=== PATIENT | male | born 1945 | race Caucasian/White ===

== ENCOUNTER → 2017-11-16 08:38 | Outpatient (CLI) | payer MEDICARE, SELFPAY ==
--- NOTE | 2017-11-16 08:39 | DI.RAD.S_ITS ---
PROCEDURE: XR FOOT LT MIN 3V INDICATIONS: Pain in L foot TECHNIQUE: 3 views of the foot were acquired. COMPARISON: None. FINDINGS: Bones: No fractures or dislocations. No suspicious bony lesions. Bone mineralization is within normal limits. There are mild/moderate degenerative changes present involving the midfoot and forefoot joints. There appears to be a deformity involving the distal tibia, which may be related to previous injury. Soft tissues: No tibiotalar joint effusion. Achilles tendon appears normal in thickness. IMPRESSION: Degenerative changes of the left foot without an acute fracture evident. Dictated by: Rajesh Hernandez M.D. on 11/16/2017 at 8:11 Approved by: Rajesh Hernandez M.D. on 11/16/2017 at 8:13
== END ==
PROVIDERS: Family Provider Physician Assistant; PCP Physician Assistant; Visit Provider Physician Assistant
DX: M19.072 Primary osteoarthritis, left ankle and foot (principal); M79.672 Pain in left foot
CPT/HCPCS: 73630

== ENCOUNTER → 2017-12-04 09:49 | Outpatient (CLI) | payer MEDICARE, SELFPAY ==
--- NOTE | 2017-12-04 09:52 | DI.RAD.S_ITS ---
PROCEDURE: XR ANKLE LT MIN 3V INDICATIONS: worsening foot pain TECHNIQUE: 3 views of the ankle were acquired. COMPARISON: None. FINDINGS: Bones: No fractures or dislocations. Ankle mortise is normally aligned. No suspicious bony lesions. Very mild osteoarthritic changes are noted in tibiotalar joint with joint space narrowing and subchondral sclerosis. Soft tissues: No tibiotalar joint effusion. Achilles tendon appears normal. IMPRESSION: Very mild the tibiotalar joint osteoarthritis. Otherwise unremarkable radiographic examination of left ankle. Dictated by: Adair Howe M.D. on 12/04/2017 at 10:04 Approved by: Adair Howe M.D. on 12/04/2017 at 10:15
--- NOTE | 2017-12-04 09:52 | DI.RAD.S_ITS ---
PROCEDURE: XR FOOT LT MIN 3V INDICATIONS: Pain in left foot/Pain in left ankle and joints of TECHNIQUE: 3 views of the foot were acquired. COMPARISON: [facility], , XR FOOT LT MIN 3V, 11/16/2017, 8:32. FINDINGS: Bones: No fractures or dislocations. No suspicious bony lesions. Bone mineralization is within normal limits. Mild to moderate osteoarthritic changes are again noted from the foot and forefoot joints more prominent in first MTP joint, unchanged from previous study. No gross bony erosive changes are seen. Soft tissues: No tibiotalar joint effusion. Achilles tendon appears normal. IMPRESSION: No significant changes from previous study. Mild to moderate osteoarthritic changes in left foot. Dictated by: Adair Howe M.D. on 12/04/2017 at 10:15 Approved by: Adair Howe M.D. on 12/04/2017 at 10:19
== END ==
PROVIDERS: PCP Physician Assistant; Visit Provider Physician Assistant
DX: M19.072 Primary osteoarthritis, left ankle and foot (principal); M79.672 Pain in left foot; M25.572 Pain in left ankle and joints of left foot
CPT/HCPCS: 73610; 73630

== ENCOUNTER → 2017-12-19 10:03 | Outpatient (CLI) | payer MEDICARE, SELFPAY ==
[2017-12-19 10:50] LABS: Hemoglobin A1C% w Est Avg Glu 5.6 % (4.0-6.0)
[2017-12-19 10:59] LABS: Cholesterol 163 mg/dL (140-199); Glucose 110 mg/dL (80-110); HDL Cholesterol 43 mg/dL (40-60); LDL Cholesterol Calculated 99 mg/dL (<100); Triglycerides 107 mg/dL (35-150)
[2017-12-19 15:47] LABS: Creatinine Urine Random 194.8 mg/dL
[2017-12-19 15:51] LABS: Microalbumin Urine Random < 0.6 mg/dL (0-1.6)
== END ==
PROVIDERS: Family Provider Physician Assistant; PCP Physician Assistant; Visit Provider Physician Assistant
DX: I10 Essential (primary) hypertension (principal); E78.5 Hyperlipidemia, unspecified; R73.01 Impaired fasting glucose
CPT/HCPCS: 36415; 80061; 82043; 82570; 82947; 83036

== ENCOUNTER → 2018-09-17 12:13 | Outpatient (CLI) | payer MEDICARE, SELFPAY | PROVIDERS: Family Provider Physician Assistant; PCP Physician Assistant; Visit Provider Surgery | DX: K43.2 Incisional hernia without obstruction or gangrene (principal) | CPT/HCPCS: 87797 ==

== ENCOUNTER → 2018-09-23 14:48 | Outpatient (CLI) | payer MEDICARE, SELFPAY ==
--- NOTE | 2018-09-23 14:54 | DI.CT.S_ITS ---
PROCEDURE: CT ABDOMEN PELVIS WO CON INDICATIONS: complex abdominal wall hernias in R groin and ventral TECHNIQUE: Noncontrast 5 mm thick sections acquired from the diaphragms to the symphysis. 5 mm coronal and sagittal reformats were then performed. For radiation dose reduction, the following was used: automated exposure control, adjustment of mA and/or kV according to patient size. COMPARISON: None. FINDINGS: Image quality: Excellent. ABDOMEN: Lung bases: Lung bases are clear. Heart size is normal. Solid organs: Liver is normal in size. Gallbladder contracted otherwise unremarkable. Pancreas is normal in contours. Spleen is normal in size. No adrenal nodules. Kidneys are normal in size, without hydronephrosis or nephrolithiasis. Peritoneum and bowel: Unenhanced bowel loops demonstrate normal wall thickness and caliber. No free fluid or air. Moderate to large amount of stool is noted diffusely. Nodes and vessels: No retroperitoneal or mesenteric adenopathy by size criteria. Aorta and inferior vena cava are normal in caliber. Miscellaneous: Multiple complex midline fat-containing ventral hernias, in the supraumbilical region. The largest hernia sac measuring approximately 7.2 x 4.4 cm in cross-sectional dimension on image 39 series 2. No definite bowel loop seen within the hernia sac. No evidence of bowel obstruction. Ill-defined presumed nodular scarring involving the intra-abdominal wall on image 42 series 2, technically indeterminate. PELVIS: Genitourinary: Bladder wall thickness is normal. Miscellaneous: Fat-containing right inguinal hernia. Bones: No suspicious bony lesions. No vertebral body compression fractures. IMPRESSION: Multiple complex fat-containing ventral hernias as detailed above measuring up to 7.2 cm. Dictated by: Morris Mcarthur M.D. on 09/23/2018 at 16:19 Approved by: Morris Mcarthur M.D. on 09/23/2018 at 16:24
== END ==
PROVIDERS: Family Provider Physician Assistant; PCP Physician Assistant; Visit Provider Internal Medicine Gastroenterology
DX: K43.2 Incisional hernia without obstruction or gangrene (principal)
CPT/HCPCS: 74176

== ENCOUNTER 2018-10-17 13:03 | Observation (INO) | payer MEDICARE, SELFPAY ==
[2018-10-08 12:08] VITALS: BMI 30.8
[2018-10-16] VITALS (17 sets, daily range): BP systolic 115–156; BP diastolic 61–97; PULSE 55–96; RESP 10–16; TEMP 36.7–37.5; O2SAT 88–100; BMI 30.8
[2018-10-16] MEDS: LACTATED RINGERS 1,000 ML 100 ML IV ×3 (07:15→15:30)
--- NOTE | 2018-10-16 07:30 | PM.HP.1 ---
History of Present Illness Date Patient Seen: 10/16/18 Time Patient Seen: 07:31 Chief complaint: [id number] OPEN VENTRAL HERNIA REPAIR Narrative: Pt seen and examened Health unchanged since - office note 10/07/18 Plan for redo ventral hernia today Patient History Medical History (Updated 10/14/18 @ 12:09 by Raissa Garzon RN) Constipation (Acute) GERD (gastroesophageal reflux disease) (Acute) History of headache (Acute) Irregular heartbeat (Acute) Sinus drainage (Acute) Ulcer (Acute) Arthritis (Chronic) Hyperlipemia (Chronic) Hypertension (Chronic) Fractures (Resolved) Inguinal hernia (Resolved ~07/2014) Prostate cancer (Resolved) Surgical History (Updated 10/08/18 @ 12:12 by Raissa Garzon RN) Hx of prostatectomy (Acute) Hx of hernia repair (Resolved 07/2014) Hx of knee surgery (Resolved) Status post radical cystoprostatectomy Family History (Updated 09/17/18 @ 11:49 by Cristy Avalos RN) Father Hypertension, essential Sister Age: 75 Cerebrovascular accident (CVA), unspecified mechanism Hypertension, essential Mother Cancer Social History household members: spouse Smoking Status: Never smoker second hand exposure: No alcohol intake: current substance use type: does not use Family & Social History Family History (Updated 09/17/18 @ 11:49 by Cristy Avalos RN) Father Hypertension, essential Sister Age: 75 Cerebrovascular accident (CVA), unspecified mechanism Hypertension, essential Mother Cancer Social History: household members spouse Tobacco & Substance use: Smoking Status Never smoker alcohol intake current Substance Use Type does not use Meds Home Medications Medication Instructions Recorded Confirmed Type Clotrimazole-betamethasone See Rx Instructions .ROUTE .COMPLEX 12/19/17 10/08/18 History aspirin 81 mg tablet,delayed 81 mg PO DAILY 06/03/18 10/16/18 History release diltiazem CD 120 mg 120 mg PO DAILY #90 cap 06/27/18 10/16/18 Rx capsule,extended release 24 hr chlorthalidone 25 mg tablet 25 mg PO DAILY #90 tab 07/03/18 10/16/18 Rx atorvastatin 20 mg tablet 20 mg PO HS #90 tab 09/18/18 10/16/18 Rx Allergies Allergy/AdvReac Type Severity Reaction Status Date / Time atorvastatin [From Lipitor] AdvReac Intermediate Swollen Verified 10/16/18 07:04 tongue and lips Lisinopril/HCT Allergy Intermediate Angioedema Uncoded 10/07/18 11:06 upper lip NOVACAINE Allergy Mild DOES NOT Uncoded 10/07/18 11:06 WORK Exam Vital Signs (past 8 hours): - 10/16/18 07:11 Temperature 98.1 F Pulse Rate 79 Respiratory Rate 16 Blood Pressure 156/95 H Pulse Oximetry 97 Oxygen Delivery Method Room Air
[2018-10-16] MEDS: HEPARIN 5,000 UNIT/ML VIAL 5000 UNIT SUBCUT ×3 (07:36→23:54)
[2018-10-16] MEDS: CEFAZOLIN 2 GM/100 ML FROZ.PIGGY IV (07:41)
[2018-10-16] MEDS: BUPIVACAINE 0.25% W/ EPI 30 ML VIAL 60 ML INJ (08:32)
[2018-10-16] MEDS: VANCOMYCIN 1,000 MG VIAL 1000 MG TOP (08:34)
[2018-10-16] MEDS: ACETAMINOPHEN IV 1,000 MG/100 ML VIAL 400 MG IV (09:35)
[2018-10-16] MEDS: CEFAZOLIN 1 GM VIAL 2 GM IV (11:39)
--- NOTE | 2018-10-16 13:03 | P.OP_ITS ---
Operative Date/Time/Diagnoses Date of procedure: 10/16/18 Time of procedure: 12:58 Pre-op diagnosis: recurrent ventral hernia Post-op diagnosis: other (complex recurrent ventral hernia with multiple [place] cheese defects largest 4.7x8cm) Procedure & Clinicians Procedure: 1) open recurrent ventral hernia repair - with primary facial closure 2) component separation CPT 11950 with retrorectus [id number] mid weight PP mesh placement - superior edge of mesh subxyphoid 3) umbilectomy 4) explantation of old mesh Same procedure as scheduled: Yes Indications: 72-year-old man presented with recurrent ventral hernia in the upper midline. He had previously had a prostatectomy and this was his extraction site. The wound was complicated by infection early dehiscence and hernia formation. He went on to have a underlay mesh repair which per the report obtain primary fascial closure but was fairly tight. He recurred and was currently symptomatic. He had a Latvian-cheese complex hernia with the largest defect measuring 4.7 x 8 cm. In addition he had a rectus diastasis. Surgeon: Otoniel Palomares Click Yes if Unassisted: Yes Anesthesia Type: General Operative Notes Findings: Latvian cheese defect of the midline between the umbilicus and the xiphoid process -with 5 total hernias identified Largest defect 4.7 x 5 cm Mid-weight polypropylene mesh placed in the retro rectus space 12 x 24 cm -superior edge subxiphoid, inferior edge approximately 6 cm below umbilicus Closure Type: primary Specimen(s): none sent Estimated Blood Loss (mL): 100 Blood products transfused: none Procedure in detail: Patient was brought to the operating room he was prepped a nd draped in usual sterile fashion and time-out was completed. An upper midline incision was carried through the skin and subcutaneous tissue from several cm below the xiphoid process to just below the umbilicus. Working through the subcutaneous tissue a sizable hernia sac was encountered. It was partly from the adjacent subcutaneous tissue and then entered carefully. A finger confirmed the presence of adhesed likely incarcerated omentum within the hernia sac this was easily lysed off that hernia sac itself and reduced into the abdomen. Then proceeded to open the hernia sac more widely. I proceeded to carry the incision superior and inferior fully dividing the multiple small fascial bridges between the various components of the ventral hernia until on the both superior edge inferior edge was at healthy viable fascia. Manny clamps were then utilized and I dissected off and intra-abdominal adhesions between the visceral and anterior abdominal wall widely and far laterally. There were relatively few of these. This allowed inspection of the anterior upper abdominal wall from inside the abdominal cavity. There were a total of 5 hernias identified. The main component was 4.7 x 8 cm centrally there also several smaller components laterally particularly on the right side. At this point other hernia sacs of the smaller hernias were excised and reduced. Clamps were placed on the fascial edges and the abdomen was brought closed checking tension. There was undue tension to provide a primary fascial closure at this point. As a consequence the decision was made to proceed with a component separation technique utilizing the retro rectus space. Manny clamps were used to elevate the left abdominal wall. A small incision was placed over the posterior rectus sheath and a large right angle was inserted into this directed medially to identified the medial edge of the posterior sheath. At this medial edge the posterior sheath was detached from the linea alba a finger was then inserted at this level and used to open up the entire attachment of the posterior rectus sheath from the linea alba -this was carried to the healthy fascia above and below the hernia defects. The small entry incision into the posterior sheath was closed using a [id number] 0 Vicryl suture. At this point Conchita is were placed on the cut medial edge of the posterior sheath and using Bovie cautery meticulously the rectus muscle was from the underlying fascia. Great care was taken to preserve the neurovascular bundles penetrating laterally. The dissection was carried to the lateral edge of the rectus sheath. The underlying transverse abdominus insertions on the posterior sheath were identified and preserved. The hernia sac centrally was fully excise down to healthy fascia. At this point the Latvian-cheese defects laterally were incorporated into this by removing the fascial bridges back to healthy fascia. I then proceeded to perform the identical release on the contralateral side. At this point I proceeded with the superior dissection. With 2 Coronel clamps elevating the rectus muscles I divided the posterior rectus sheath off the linea alba at the superior aspect of the disssection underneath at least 5 cm of retained and undisturbed anterior component. At this point however I was fairly close to the xiphoid and felt that given the rectus diastasis in this area and the higher risk for hernia formation in this area the prudent decision was to carry the mesh subxiphoid. As a consequence I continued the dissection superiorly the without disturbing the linea alba or anterior component until I was subxiphoid I carried the retro rectus pocket approximately 2 cm superior to the xiphoid process to allow complete mesh buttressing of the area. Next directed my attention to the inferior aspect, in a similar fashion the posterior sheath was detached from the linea alba 6 cm inferior of my initial incision through the facia. This extended about 6 cm below the umbilicus. The umbilicus itself appeared to be at significant risk of devascularization given the hernia dissection around it and as a consequence it was removed. I then proceeded to wash out the area, hemostasis was inspected found to be excellent. Attention to obtain primary closure of the posterior and anterior sheaths were checked and was found to be without significant tension whatsoever. The posterior sheath was then closed for its entirety using continuous number 0 PDS in simple fashion. Local anesthetic was then directed into the transverse abdominis muscle performing essentially an abdominal wall nerve block. Medium weight polypropylene mesh was then placed into the retro rectus space with final dimensions measuring 12 x 24 cm. The mesh was placed on physiologic tension utilizing a total of 4 transfascial 0 PDS sutures placed out laterally. These were passed into the posterior rectus space utilizing transfascial suture device and small stab incisions. The mesh was placed across the entire retro rectus dissect this space including subxiphoid. It was irrigated with vancomycin solution. Then proceeded to close the anterior fascia with 0 simple continuous PDS with the excellent primary fascial closure. Subcutaneous tissues were then irrigated and skin was closed using interrupted deep dermal Vicryl sutures as well as absorbable subcuticular sutures. No drains were placed. Dressings were applied as well as an abdominal binder patient was extubated and brought to PACU without incident Complications: none Condition: stable Disposition: PACU Plan for aftercare: PACU then admit to floor
--- NOTE | 2018-10-16 15:11 | SUR.PHASEI ---
Post op transfer note: Transferred to IP room 211. VSS on arrival. RA sat 89-91% 2 liters/NC placed with Sats 94-96%. Dressing to abdomen CDI with abdominal binder on. No drainage noted. SCD's on. IV patent. Verbal report given to Rashida Rayo RN.
[2018-10-16] MEDS: MORPHINE 4 MG/ML INJ IV ×3 (15:31→21:22)
--- NOTE | 2018-10-16 15:33 | PC.NURSE ---
Pt arrived to room at 1440. He is A&Ox3, Incisions x9 are all wnl. Pt has 4 puncture wounds on each side of abdomen and then a ml incision that is covered with aquacel dressing. Report passed off to Cristela Lambert.
[2018-10-16] MEDS: METHOCARBAMOL 500 MG TABLET 750 MG PO ×2 (16:19→21:06)
--- NOTE | 2018-10-16 17:30 | PC.NURSE ---
Addendum entered by Petra Santos R.N. 10/16/18 19:16: 1845- New orders; decrease IV fluids to 75/hr, and clears diet. Provided pt with Popsicle and water. Original Note: A/O x4, 93-94% 1Lnc, LS clear, denies SOB. Pt has 8 lap sited, 4 on each side of ABD, all well approximated with 1 staple and tagederm cover. Midline incision with aquacell drsg CDI, ABD binder in place around ABD. Pt had TAP, transverse abdominal plane block. Wiggle toes, ankle waves, CMS++, pp+, rates pain 2-4/10, medicated with morphine 2mg IVP at beginning of shift, but requested additional 2mg IVP in one hr. Order is for 4mg so gave Pt additional 2mg, which pt reports effective. Pt reports high tolerance to pain medications. , Ayana in room. Morales patent and draining clear yellow urine to gravity. Right hand LR @ 125 infusing. Pt remains NPO status, mouth toothettes for oral care, and mouth moisturizer at bedside. Pillow for splinting in bed, ice packs to ABD for comfort. Bed alarm on for safety.
[2018-10-16] MEDS: ACETAMINOPHEN 325 MG TABLET 650 MG PO (19:13)
[2018-10-16] MEDS: ATORVASTATIN 20 MG TABLET PO (21:05)
[2018-10-16] MEDS: CELECOXIB 200 MG CAPSULE PO (21:05)
[2018-10-16] MEDS: POLYETHYLENE GLYCOL 3350 17 GM POWD.PACK PO (21:06)
[2018-10-16] MEDS: GABAPENTIN 300 MG CAPSULE 900 MG PO (21:06)
[2018-10-17] VITALS (11 sets, daily range): BP systolic 121–140; BP diastolic 61–89; PULSE 61–84; RESP 16–18; TEMP 36.4–37.1; O2SAT 94–97
[2018-10-17] MEDS: ACETAMINOPHEN 325 MG TABLET 650 MG PO ×4 (00:19→18:05)
[2018-10-17] MEDS: LACTATED RINGERS 1,000 ML 100 ML IV (03:51)
[2018-10-17] MEDS: MORPHINE 4 MG/ML INJ IV (03:52)
[2018-10-17 05:43] LABS: Add Manual Diff / Slide Review NO; Basophils Absolute Auto 0 /uL (0-100); Basophils Percent Auto 0.2 % (0-2); Eosinophils Absolute Auto 0 /uL (0-450); Hematocrit 41.5 % (41-53); Hemoglobin 14.3 g/dL (13.5-17.5); Lymphocytes Absolute Auto 900 /uL (1100-4500); Lymphocytes Percent Auto 6.9 % (25-40); Mean Corpuscular HGB Conc 34.5 % (30-36); Mean Corpuscular Hemoglobin 31.9 PG (26-34); Mean Corpuscular Volume 92.4 fL (80-100); Monocytes Absolute Auto 1400 /uL (0-900); Monocytes Percent Auto 11.1 % (3-14); Neutrophils Absolute Auto 10300 /uL (1500-7000); Neutrophils Percent Auto 81.8 % (50-75); Platelet Count 307 X10^3/uL (150-400); Red Blood Cell Count 4.49 X10^6/uL (4.5-5.9); Red Cell Distribution Width 14.2 % (11.6-14.8); White Blood Cell Count 12.5 X10^3/uL (4.5-11.0)
[2018-10-17 05:51] LABS: Magnesium 1.9 mg/dL (1.6-2.3)
[2018-10-17 05:52] LABS: BUN Creatinine Ratio 18.9 (6-22); Blood Urea Nitrogen 17 mg/dL (9-20); Calcium 8.8 mg/dL (8.4-10.2); Carbon Dioxide 31 mmol/L (22-32); Chloride 99 mmol/L (98-107); Estimated Glomerular Filt Rate > 60.0 mL/min (>60); Glucose 136 mg/dL (80-110); HEMOLYSIS < 15 (0-50); Potassium 3.3 mmol/L (3.4-5.1); Sodium 136 mmol/L (137-145)
[2018-10-17] MEDS: HEPARIN 5,000 UNIT/ML VIAL 5000 UNIT SUBCUT ×3 (06:10→21:26)
[2018-10-17] MEDS: dilTIAZem CD 120 MG CAP PO (08:57)
[2018-10-17] MEDS: METHOCARBAMOL 500 MG TABLET 750 MG PO ×4 (08:57→21:25)
[2018-10-17] MEDS: POLYETHYLENE GLYCOL 3350 17 GM POWD.PACK PO ×2 (08:57→21:26)
[2018-10-17] MEDS: ASPIRIN EC 81 MG TABLET PO (08:57)
[2018-10-17] MEDS: CELECOXIB 200 MG CAPSULE PO ×2 (08:57→21:24)
--- NOTE | 2018-10-17 10:44 | CM.DANOTE ---
Patient is a 72 year old male who was admitted on 10/16/18 for Hernia Repair. Pt has [facility] and [employer] for insurance and his PCP is Dr. Dinah Asher. EMR was reviewed. Per Surgeon, pt seemed to tolerate procedure well and ordered PT eval. Per RN, pt currently still NPO. PT eval pending. SW met bedside with pt, spouse, and young grandson and explained role and updated white board and pt confirms that he lives at home in [place] with his spouse and is quite Independent with ADL's at baseline and drives. Pt very active with fly fishing and denies any hx of HH or SNF and does not anticipate any SW needs at d/c. Pt states he has local adult Dtr and family and his son lives in [place] and spouse is retired and available for assist as well as adult Dtr and lots of local friend support. Pt confirms that his DPOA is his spouse Ayana ([phone]). Pt and spouse preference is to d/c home with family and friend support when medically stable. Plan: SW to follow after PT eval and recommendations to confirm can d/c home with family assist when medically stable. GINGER Tracey Discharge Planning/Care Management Advanced directive, confirm from FAMILY Start: 10/16/18 15:23 Freq: Q24H Status: Active Protocol: Document 10/16/18 15:23 MLA (Rec: 10/16/18 17:29 MLA [id number]) Advance Directive, confirm on record Time 16:00 Person contacted Ayana Copy received No CM Discharge Assessment Start: 10/17/18 10:42 Freq: Status: Active Protocol: Document 10/17/18 10:42 BF (Rec: 10/17/18 10:44 BF [id number]) Discharge Planning Assessment Assigned Sharepoint Analyst GINGER Ramirez DPOA/Assigned Designee Name spouse Ayana Contact Information [phone] Advance Directives? Yes History Provided By Patient Significant Other Medical Record Has Patient been admitted in last 30 No days? Prior Living Arrangements House Household Members spouse Type of transporation used prior to Drives own vehicle admit Independent with ADL's Yes Is patient alert and oriented? Yes Caregiver for Another No Comment Pending PT eval and recommendations Barriers to Discharge No Discharge Plan Home Transportation Arrangement Spouse likely can provide transport at d/c Referrals Initiated None needed Whiteboard Updated in Patient Room with Yes name and ext. # of Sharepoint Analyst Review Status In Process Please Provide Date Initial DC 10/17/18 Assessment Was Performed Next Review Type Continued Stay Review Pre-Anesthesia Assessment Start: 10/08/18 12:07 Freq: Status: Active Protocol: Document 10/08/18 12:08 CAB (Rec: 10/08/18 12:20 CAB [id number]) Pre-Anesthesia Assessment Patient Information Reviewed Via Chart Review Primary Care Provider Dinah Asher Seen Specialist in Last 12 Months Yes Specialist Seen General surgeon Primary Language Scottish Milking Worker Required No Height 177.8 cm Weight 97.522 kg Body Mass Index (BMI) 30.8 Hearing Ability Hard of Hearing Use of Hearing Aid Visual Assist Glasses Dentition Type Teeth, Natural Present Hx Anesthesia Reactions No Hx Family Anesthesia Reaction No Hx Malignant Hyperthermia No Hx Blood Transfusions No Anesthesia Review Requested No Plant Pathologist No alcohol intake current Alcohol Intake Frequency Other: Occasional Smoking Status Never smoker Substance Use Type does not use Pain Present Pain Reported History of Falling (Recent or History of No ) Patient is completely paralyzed or No completely immobile Mental Status Oriented to own ability Is patient on oxygen? No Does patient have ARAUJO/SOB No Hx Sleep Apnea No Currently Taking a Beta [place] No Hx Chest Pain No Hx SOB No Hx Syncope or Dizziness No Anti-Coagulant Therapy No Has a Stove Polisher No Cardiac Testing No Hx Pacemaker/ICD No Pacemaker Rep Required? No dysphagia No Bladder Pattern Frequency Incontinent Urgency Urinary Catheter Present No Hx Urinary Self Catheterization No Diabetes No Hx Drug Resistant Organism No Marital Status Lives With spouse Support System Spouse Patient Discharge Plan Description Return Home
--- NOTE | 2018-10-17 11:30 | PT.IIE ---
Current Diagnoses Incisional hernia without obstruction or gangrene (10/16/18) Surgery Performed Operation Date: 10/16/18 07:45 Actual Procedures p Complex Ventral Hernia Repair - Otoniel Palomares MD Surgical History (Last Updated 10/08/18 @ 12:12 by Raissa Garzon RN) Hx of prostatectomy (Acute) Hx of hernia repair (Resolved 07/2014) Hx of knee surgery (Resolved) Status post radical cystoprostatectomy Medical History (Last Updated 10/14/18 @ 12:09 by Raissa Garzon RN) Constipation (Acute) GERD (gastroesophageal reflux disease) (Acute) History of headache (Acute) Irregular heartbeat (Acute) Sinus drainage (Acute) Ulcer (Acute) Arthritis (Chronic) Hyperlipemia (Chronic) Hypertension (Chronic) Fractures (Resolved) Inguinal hernia (Resolved ~07/2014) Prostate cancer (Resolved) Physical Therapy Inpatient Evaluation/Re-Eval M1 PT/OT-IP Prior Functional Status Start: 10/17/18 09:12 Freq: NEEDED Status: Active Protocol: Document 10/17/18 10:20 (Rec: 10/17/18 11:30 [email or web address]) Medical Review Prior Functional Status Medical History Reviewed Yes Diet/Fluid Consistency Clear Liquids NPO Communication No deficits noted. Able to make needs known Mobility and Gait Independent for mobility at home and community without AD. Like to walk 3-4 miles 3- 4times a week. Activities of Daily Living and IADL's Independent with ADLs and IADLs. Social History Household Members spouse Living Arrangements House Number of Floors (Floors) One Floor Number of Stairs To Enter/Railing? 2 CELINA, no rails Home Environment High Toilet Walk in Shower Home Equipment Four Wheel Walker Straight Cane Shower Seat with Backrest Hand Held Shower Grab Bars Near Toilet Grab Bars In Shower Employment Status Self-Employed Additional Social History Comment Pt lives with her in [place]. 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 PMH includes 7 hernia since his prostate sx from 7 years ago. He stated his last repair was unsuccessful that incision opened after gait training [facility]. M2 PT-IP Current Condition Start: 10/17/18 09:12 Freq: NEEDED Status: Active Protocol: Document 10/17/18 10:20 HH (Rec: 10/17/18 11:30 [email or web address]) Physical Therapy Current Condition Current Condition Evaluation Date 10/17/18 Treatment Diagnosis Ventral hernia repair, decreased activity tolerance Onset Date 10/16/18 Precautions Abdominal Surgery Precautions Log Roll Lifting Restrictions Gait Belt above Incisional Area Weight Bearing Status Weight Bearing Status Weight Bear as Tolerated M3 PT-IP Subjective Start: 10/17/18 09:12 Freq: NEEDED Status: Active Protocol: Document 10/17/18 10:20 HH (Rec: 10/17/18 11:30 [email or web address]) Subjective Physical Therapy Visit Type Type Initial Evaluation Visit Start Time 10:00 Visit Stop Time 10:40 Total Visit Minutes 20 Notes Pt has abdominal binder and weaver catheter on. Number of BUILDING CONTRACTOR Visits 0 Physical Therapy Visit Comments Patient Comments Im feeling better today. But i want to take it slow since i had the accident for last unsuccessful repair sx. Patient Goals To go home with his . Therapy Pain Assessment Pain When Pain Assessed During Mobility Pain Present Pain Present Pain Reported Location abdomen Intensity 2 Description Acute Pain Management Techniques Modification of Treatment Re-positioning Timing of Activity with Medications M4 PT-IP Mobility and Gait Start: 10/17/18 09:12 Freq: NEEDED Status: Active Protocol: Document 10/17/18 10:20 HH (Rec: 10/17/18 11:30 [email or web address]) PT-Transfer Assessment Sit to and From Stand Sit to and from Stand Contact Guard Assistance Use of Upper Extremities Equipment Transfer Assistive Device Gait Belt Orthotic/Prosthetic Devices or Brace: Yes Transfers Transfer Destination Chair Transfer Technique Stand Step Pivot Transfer Ability Level of Assist Contact Guard Assistance Use of Upper Extremities Comments Mobility Comments Pt was up in chair with pillow on top of his abdominal for compression. Pt was able to stand up with CGA but slowly. He states he is slightly unsteady to stand/ walk without walker at this point. Educated pt to avoid holding his breath during transfers/ mobility. Also to use pillow as needed to compress for pain management. Gait Assessment Gait Gait Assistance Required: Standby Assistance Distance (Feet) 220 Able to Maintain Weight Bearing Status Yes During Gait Assistive Devices Assistive Device Gait Belt Front Wheeled Walker Orthotic/Prosthetic Devices or Brace: Yes Gait Deviations General Gait Pattern Decreased Stride Length Decreased Feet Clearance Factors Limiting Gait Function Factors Limiting Gait Function Decreased Activity Tolerance Decreased Strength Pain Comments Gait Comments Pt amb from chair to hallway for 1 round trip with FWW. Decreased feet clearance and stride length noticed. Attempted amb without AD but he appears increase in unsteadiness with excessive sway. He reports I feel a little unbalance. Pt stated slight fatigue and increase in abdominal pain after gait training. Stair Climbing Assessment Comments Stair Climbing Comments Pt states he does not want to attempt yet due to unsuccessful sx from last repair. Anticipate to try again tomorrow. PT-Balance Assessment Sitting Balance and Reactions Static Sitting Balance Ability Normal Dynamic Sitting Balance Ability Normal Standing Balance and Reactions Static Standing Balance Ability Good Dynamic Standing Balance Ability Good Device Used FWW M5 PT-IP Objective Assessments Start: 10/17/18 09:12 Freq: NEEDED Status: Active Protocol: Document 10/17/18 10:20 (Rec: 10/17/18 11:30 [facility] Orientation Orientation/Cognition Level of Alertness Alert Orientation Name Age Birthday Month Date Year Day of Week Place Situation Language Function Ability No Deficits Noted Safety Awareness Understands Safety Issues Memory Description No Deficits Noted Gross Range of Motion Upper Extremity ROM Assessment Within Functional Limits Lower Extremity ROM Assessment Within Functional Limits Strength Upper Extremity Strength Assessment Within Functional Limits Lower Extremity Strength Assessment Within Functional Limits Coordination Assessment Gross Coordination Gross Coordination WNL Sensation Assessment Sensation Gross Sensation WNL M6 PT-IP Treatment Start: 10/17/18 09:12 Freq: NEEDED Status: Active Protocol: Document 10/17/18 10:20 HH (Rec: 10/17/18 11:30 [email or web address] Physical Therapy Treatment Education Education Provided Precautions Weight Bearing Status Post-Op Packet Safety M7 PT-IP Assessment and Plan Start: 10/17/18 09:12 Freq: NEEDED Status: Active Protocol: Document 10/17/18 10:20 HH (Rec: 10/17/18 11:30 [facility] PT Summary Assessment and Plan Potential Rehabilitation Potential Excellent Status of Condition at Evaluation Stable Summary Impairments Pain ROM Strength Balance Bed Mobility Transfers Gait Assessment Summary Pt is low complexity who is POD#2 ventral hernia repair. Upon assessment, pt demonstrates good mobility and strength with overall CGA for transfers and SBA for ambulation. He does show decrease in balance without FWW. Educated pt to use pillow to compress abdominal area for pain management during exertion. Due to pt's previous failed repair, his activities has to be well managed accordingly especially strenuous activities to prevent excessive central abdominal pressure. Pt will be able to d/c home once he is medically stable. Goals Bed Mobility Goal Independent Transfer Goal Independent Front Wheeled Walker Gait Goal Independent Front Wheel Walker Gait Distance 500 Other Goals climb 2 CELINA without railings independently log roll independently Days to Meet Goals 3 Frequency of Treatment Frequency Of Treatment Twice a Day Treatment Plan Physical Therapy Treatment Plan Bed Mobility Training Transfer Training Gait Training Therapeutic Exercise Balance Retraining Post Op Education Discharge Planning Hot or Cold Pack Other Recommendations and Next Treatment educate pt log roll method Focus cont transfer and gait training as rik with LRAD 2 steps climbing if possible Recommendations To Nursing Amount of Assist Needed Standby Assistance 1 Person Assist Discharge Recommendations PT Discharge Recommendations Home with Assistance
--- NOTE | 2018-10-17 13:40 | PT.IPTN ---
Current Diagnoses Incisional hernia without obstruction or gangrene (10/16/18) Surgery Performed Operation Date: 10/16/18 07:45 Actual Procedures p Complex Ventral Hernia Repair - Otoniel Palomares MD Physical Therapy Treatment Note M2 PT-IP Current Condition Start: 10/17/18 09:12 Freq: NEEDED Status: Active Protocol: Document 10/17/18 10:20 HH (Rec: 10/17/18 11:30 HH [email or web address]) Physical Therapy Current Condition Current Condition Evaluation Date 10/17/18 Treatment Diagnosis Ventral hernia repair, decreased activity tolerance Onset Date 10/16/18 Precautions Abdominal Surgery Precautions Log Roll Lifting Restrictions Gait Belt above Incisional Area Weight Bearing Status Weight Bearing Status Weight Bear as Tolerated M3 PT-IP Subjective Start: 10/17/18 09:12 Freq: NEEDED Status: Active Protocol: Document 10/17/18 14:10 GGD (Rec: 10/17/18 15:15 GGD [id number]) Subjective Physical Therapy Visit Type Type Treatment Note Visit Start Time 13:40 Visit Stop Time 14:10 Total Visit Minutes 30 Number of FIRST AID ATTENDANT Visits 1 Physical Therapy Visit Comments Patient Comments Pt states he would like to walk. M4 PT-IP Mobility and Gait Start: 10/17/18 09:12 Freq: NEEDED Status: Active Protocol: Document 10/17/18 14:10 GGD (Rec: 10/17/18 15:15 GGD [id number]) PT-Bed Mobility Assessment Rolling Type of Rolling Log Rolling Roll to Right Level of Assist Standby Assistance Supine to Sit Supine to Sit Standby Assistance Sit to Supine Sit to Supine Standby Assistance Scooting Scooting to Edge of Bed Independent PT-Transfer Assessment Sit to and From Stand Sit to and from Stand Contact Guard Assistance Use of Upper Extremities Equipment Transfer Assistive Device Gait Belt Orthotic/Prosthetic Devices or Brace: Yes Transfers Transfer Destination Bed Transfer Ability Level of Assist Contact Guard Assistance Use of Upper Extremities Gait Assessment Gait Gait Assistance Required: Standby Assistance Distance (Feet) 440 Able to Maintain Weight Bearing Status Yes During Gait Assistive Devices Assistive Device None Gait Belt Front Wheeled Walker Orthotic/Prosthetic Devices or Brace: Yes Gait Deviations General Gait Pattern Decreased Stride Length Decreased Feet Clearance Factors Limiting Gait Function Factors Limiting Gait Function Decreased Activity Tolerance Decreased Strength Pain Comments Gait Comments Pt ambulated 220 feet with FWW with SBA and then 220 feet without assistive device with CGA. M5 PT-IP Objective Assessments Start: 10/17/18 09:12 Freq: NEEDED Status: Active Protocol: Document 10/17/18 10:20 HH (Rec: 10/17/18 11:30 [email or web address]) Orientation Orientation/Cognition Level of Alertness Alert Orientation Name Age Birthday Month Date Year Day of Week Place Situation Language Function Ability No Deficits Noted Safety Awareness Understands Safety Issues Memory Description No Deficits Noted Gross Range of Motion Upper Extremity ROM Assessment Within Functional Limits Lower Extremity ROM Assessment Within Functional Limits Strength Upper Extremity Strength Assessment Within Functional Limits Lower Extremity Strength Assessment Within Functional Limits Coordination Assessment Gross Coordination Gross Coordination WNL Sensation Assessment Sensation Gross Sensation WNL M6 PT-IP Treatment Start: 10/17/18 09:12 Freq: NEEDED Status: Active Protocol: Document 10/17/18 10:20 HH (Rec: 10/17/18 11:30 [email or web address]) Physical Therapy Treatment Education Education Provided Precautions Weight Bearing Status Post-Op Packet Safety M7 PT-IP Assessment and Plan Start: 10/17/18 09:12 Freq: NEEDED Status: Active Protocol: Document 10/17/18 14:10 GGD (Rec: 10/17/18 15:15 GGD [id number]) PT Summary Assessment and Plan Summary Assessment Summary Pt improving with mobility. He is was safe with log roll and gait with FWW. He did have wide JORDAN with gait without assistive device. Frequency of Treatment Frequency Of Treatment Twice a Day Treatment Plan Physical Therapy Treatment Plan Bed Mobility Training Transfer Training Gait Training Therapeutic Exercise Balance Retraining Post Op Education Discharge Planning Hot or Cold Pack Other Recommendations and Next Treatment educate pt log roll method Focus cont transfer and gait training as rik with LRAD 2 steps climbing if possible Recommendations To Nursing Amount of Assist Needed Standby Assistance 1 Person Assist Discharge Recommendations PT Discharge Recommendations Home with Assistance
--- NOTE | 2018-10-17 19:08 | PM.PN.1 ---
Subjective Date Patient Seen: 10/17/18 Time Patient Seen: 19:09 Interval history: Pt well appearing No flatus But feeling well and hungery Yet to ambulate post op Exam Vital Signs (past 8 hours): - 10/17/18 11:48 10/17/18 15:00 10/17/18 16:00 Temperature 97.6 F 98.0 F Pulse Rate 70 61 Respiratory Rate 18 18 Blood Pressure 136/89 121/75 Pulse Oximetry 96 96 95 Oxygen Delivery Method Room Air Oxygen Flow Rate 0 Narrative Exam Narrative: Well on RA Abd soft minimally tender minimally distended periphery warm Dressings dry Objective Labs Result Diagrams: 10/17/18 05:18 10/17/18 05:18 Labs: Laboratory Results - last 24 hr 10/17/18 10/17/18 10/17/18 05:18 05:18 05:18 WBC 12.5 H RBC 4.49 L Hgb 14.3 Hct 41.5 MCV 92.4 MCH 31.9 MCHC 34.5 RDW 14.2 Plt Count 307 Neut % (Auto) 81.8 H Lymph % (Auto) 6.9 L Villalba % (Auto) 11.1 Eos % (Auto) 0.0 L Baso % (Auto) 0.2 Neut # (Auto) 47178 H Lymph # (Auto) 900 L Villalba # (Auto) 1400 H Eos # (Auto) 0 Baso # (Auto) 0 Sodium 136 L Potassium 3.3 L Chloride 99 Carbon Dioxide 31 BUN 17 Creatinine 0.90 Estimated GFR > 60.0 BUN/Creatinine Ratio 18.9 Glucose 136 H Calcium 8.8 Magnesium 1.9 Assessment & Plan Assessment & Plan narrative: 72 yo man POD1 after redo ventral hernia repair with component separation and retrorectous mesh. Primary fascia closure obtained. Awaiting return of bowel fucntion Plan: multimodal pain control liquid diet PT to asses mobility Hm statin and ASA Holding home diuretics - used to tx htn replete K and mag
[2018-10-17] MEDS: POTASSIUM CHLORIDE 20 MEQ/15 ML UDC 40 MEQ PO (19:35)
[2018-10-17] MEDS: MAGNESIUM SULFATE 2 GM/50 ML PIGGYBACK IV (19:35)
[2018-10-17] MEDS: ATORVASTATIN 20 MG TABLET PO (21:24)
[2018-10-17] MEDS: GABAPENTIN 300 MG CAPSULE 900 MG PO (21:25)
[2018-10-17] MEDS: OXYCODONE IR 5 MG TABLET PO (21:29)
[2018-10-18] VITALS: O2SAT 96
[2018-10-18] MEDS: ACETAMINOPHEN 325 MG TABLET 650 MG PO ×2 (00:09→06:34)
[2018-10-18] MEDS: POTASSIUM CHLORIDE 20 MEQ/15 ML UDC 40 MEQ PO (00:10)
[2018-10-18] MEDS: LACTATED RINGERS 1,000 ML 100 ML IV (00:12)
[2018-10-18 06:00] VITALS: BP 106/66; PULSE 65; RESP 16; TEMP 36.6; O2SAT 96
[2018-10-18] MEDS: HEPARIN 5,000 UNIT/ML VIAL 5000 UNIT SUBCUT (06:35)
[2018-10-18 07:30] VITALS: BP 108/52; PULSE 68; RESP 16; TEMP 36.4; O2SAT 94
[2018-10-18 09:26] VITALS: O2SAT 95
[2018-10-18] MEDS: METHOCARBAMOL 500 MG TABLET 750 MG PO (09:35)
[2018-10-18] MEDS: POLYETHYLENE GLYCOL 3350 17 GM POWD.PACK PO (09:36)
[2018-10-18] MEDS: CELECOXIB 200 MG CAPSULE PO (09:36)
[2018-10-18] MEDS: dilTIAZem CD 120 MG CAP PO (09:36)
[2018-10-18] MEDS: ASPIRIN EC 81 MG TABLET PO (09:37)
--- NOTE | 2018-10-18 10:07 | PM.DS.1 ---
History of Present Illness Chief complaint: [id number] OPEN VENTRAL HERNIA REPAIR Narrative: Pt admitted after surgery for complex recurrent ventral hernia. He underwent a component separation with placement of rectrorectous mesh in his upper abdomen. primary fascial closure obtained. Post op he did well with minimal pain. By POD2 reconstitued bowel function with flatus, tolerated diet, and was ambulating independently. Desired discharge and lives locally. Discharge Providers Date of admission: 10/17/18 13:03 Discharge Date: 10/18/18 Primary care physician: Dinah Asher PA-C Consults: 10/17/18 07:48 Consult to Physical Therapy Evaluate & Treat Comment: mobilize after surgery , ok to ambulate, FWB all 4 Physician Instructions: Evaluate and Treat Discharge provider: Otoniel Palomares Exam Vital Signs (past 8 hours): - 10/18/18 06:00 10/18/18 07:30 10/18/18 09:26 Temperature 97.9 F 97.6 F Pulse Rate 65 68 Respiratory Rate 16 16 Blood Pressure 106/66 108/52 L Pulse Oximetry 96 94 95 Oxygen Delivery Method Room Air Oxygen Flow Rate 0 Narrative Exam Narrative: well appearing NAD abd soft nontender nondistended Wounds CDI Objective Labs Result Diagrams: 10/17/18 05:18 10/17/18 05:18 Discharge Plan Discharge Plan Patient Disposition: Home Discharge Med Rec/Prescriptions Prescriptions: New celecoxib [Celebrex] 200 mg Capsule 200 mg PO BID 2 Days Qty: 4 RF: 0 methocarbamol 500 mg Tablet 750 mg PO QID Qty: 16 RF: 0 acetaminophen 325 mg Tablet 650 mg PO Q6HR Qty: 30 RF: 0 polyethylene glycol 3350 17 gram Powder In Packet 17 gm PO BID Qty: 20 RF: 0 oxycodone 5 mg Tablet 5 mg PO Q4HR PRN (Reason: Pain, Moderate (4-6)) Qty: 10 RF: 0 Continued Clotrimazole-betamethasone See Patient Comments .ROUTE .COMPLEX RF: 0 aspirin [Adult Low Dose Aspirin] 81 mg tablet,delayed release (DR/EC) 81 mg PO DAILY RF: 0 diltiazem HCl 120 mg capsule,extended release 24hr 120 mg PO DAILY Qty: 90 RF: 0 chlorthalidone 25 mg tablet 25 mg PO DAILY Qty: 90 RF: 0 atorvastatin [Lipitor] 20 mg tablet 20 mg PO HS Qty: 90 RF: 0 Follow up/Referrals: Dinah Asher PA-C [Primary Care Provider] - Otoniel Palomares MD [Physician] - (follow up appt in about 2 weeks) Provider Discharge Instructions Diet: Diet as Tolerated Activity: Light activity for next 2 weeks. No lifting over 10lbs for 6 full weeks. OK to walk and do round the house activities if they are light. Ok to shower. no Bath for 2 weeks Skin/Wound/Dressing Care Other wound treatment: Continue to take the miralax to keep your stools soft Visit Report/Discharge Packet Instructions: How to Prevent Falls, DI for Ventral Hernia, [facility]: Wound Care Stand Alone Forms: Surgery Discharge Discharge Data Primary Care Provider: Dinah Asher Attending Provider: Otoniel Palomares Admit Date/Time: 10/17/18 13:03
--- NOTE | 2018-10-18 12:08 | PT.IPTN ---
Current Diagnoses Incisional hernia without obstruction or gangrene (10/17/18) Surgery Performed Operation Date: 10/16/18 07:45 Actual Procedures p Complex Ventral Hernia Repair - Otoniel Palomares MD Physical Therapy Treatment Note M2 PT-IP Current Condition Start: 10/17/18 09:12 Freq: NEEDED Status: Active Protocol: Document 10/17/18 10:20 HH (Rec: 10/17/18 11:30 [email or web address]) Physical Therapy Current Condition Current Condition Evaluation Date 10/17/18 Treatment Diagnosis Ventral hernia repair, decreased activity tolerance Onset Date 10/16/18 Precautions Abdominal Surgery Precautions Log Roll Lifting Restrictions Gait Belt above Incisional Area Weight Bearing Status Weight Bearing Status Weight Bear as Tolerated M3 PT-IP Subjective Start: 10/17/18 09:12 Freq: NEEDED Status: Active Protocol: Document 10/18/18 10:20 HH (Rec: 10/18/18 12:08 [email or web address]) Subjective Physical Therapy Visit Type Type Discharge Summary Visit Start Time 10:20 Visit Stop Time 10:40 Total Visit Minutes 20 Notes Pt will be d/c today. Physical Therapy Visit Comments Patient Comments Pt states he would like to walk. M4 PT-IP Mobility and Gait Start: 10/17/18 09:12 Freq: NEEDED Status: Active Protocol: Document 10/18/18 10:20 HH (Rec: 10/18/18 12:08 [email or web address]) PT-Bed Mobility Assessment Rolling Type of Rolling Log Rolling Roll to Right Level of Assist Independent Supine to Sit Supine to Sit Independent Head of Bed Elevated Scooting Scooting to Edge of Bed Independent PT-Transfer Assessment Sit to and From Stand Sit to and from Stand Independent Use of Upper Extremities Equipment Orthotic/Prosthetic Devices or Brace: Yes Transfers Transfer Destination Bed Chair Transfer Ability Level of Assist Independent Use of Upper Extremities Comments Mobility Comments Pt requested to elevate HOB for 10 degrees for supine to sit to reduce his abdominal pain. Pt has adjustable bed at home. Gait Assessment Gait Gait Assistance Required: Standby Assistance Distance (Feet) 500 Able to Maintain Weight Bearing Status Yes During Gait Assistive Devices Assistive Device None Gait Deviations General Gait Pattern Decreased Stride Length Decreased Feet Clearance Wide Based Gait Factors Limiting Gait Function Factors Limiting Gait Function Decreased Activity Tolerance Decreased Strength Pain Comments Gait Comments pt amb without AD today for 500 feet. He started with WBOS but slowly improved as distance increase. Overall very steady and safe. Stair Climbing Assessment Evaluation Level of Assist On Stairs Independent Devices Stair Climbing Assistive Devices None Technique/Endurance Stair Climbing Direction Ascend and Descend Stair Climbing Technique Step Over Step Step to Step Number of Steps Climbed 3 Query Text: Stair Climbing Set # Repetitions (reps) 2 M5 PT-IP Objective Assessments Start: 10/17/18 09:12 Freq: NEEDED Status: Active Protocol: Document 10/17/18 10:20 (Rec: 10/17/18 11:30 [email or web address]) Orientation Orientation/Cognition Level of Alertness Alert Orientation Name Age Birthday Month Date Year Day of Week Place Situation Language Function Ability No Deficits Noted Safety Awareness Understands Safety Issues Memory Description No Deficits Noted Gross Range of Motion Upper Extremity ROM Assessment Within Functional Limits Lower Extremity ROM Assessment Within Functional Limits Strength Upper Extremity Strength Assessment Within Functional Limits Lower Extremity Strength Assessment Within Functional Limits Coordination Assessment Gross Coordination Gross Coordination WNL Sensation Assessment Sensation Gross Sensation WNL M6 PT-IP Treatment Start: 10/17/18 09:12 Freq: NEEDED Status: Active Protocol: Document 10/18/18 10:20 (Rec: 10/18/18 12:08 [email or web address]) Physical Therapy Treatment Education Education Provided Precautions Weight Bearing Status Post-Op Packet Safety M7 PT-IP Assessment and Plan Start: 10/17/18 09:12 Freq: NEEDED Status: Active Protocol: Document 10/18/18 10:20 (Rec: 10/18/18 12:08 [email or web address]) PT Summary Assessment and Plan Summary Progress Towards Goals Safe For Discharge Goals Met Assessment Summary Pt progress well with mobility without AD and returned to his PLOF. He is able to perform log roll safely as well. He is safe to be d.c home today. Frequency of Treatment Frequency Of Treatment Discharge Recommendations To Nursing Amount of Assist Needed Independent Standby Assistance Discharge Recommendations PT Discharge Recommendations Home with Assistance
--- NOTE | 2018-10-18 13:42 | PC.NURSE ---
Day Shift- Pt denies pain with rest, is tender upon palpation to lower abd and RUQ abd. States 4/10 pain across abd with coughing. Pt encouraged and observed abd splinting and abd binder in place. No prn's at this time. Abd midline aquacel dressing and tegaderm dressings over 8 laps sites removed by Dr. Vernon and this keno writer / runner around 0920. 4 lap site incision to either side of midline incision. All were well approximated, no S/S of infection. Discharge summary packet reviewed with pt and his at bedside. No voiced concerns, states has all belongings. 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 Pt's present to drive pt home. Pt states he has prescriptions already filled at home, no changes.
== END 2018-10-18 12:32 | disposition home or self-care (01) ==
LOC: OR 16:07
PROVIDERS: Admitting Provider Surgery; Family Provider Physician Assistant; PCP Physician Assistant; Visit Provider Surgery
PROC: (CPT 49565; principal; 2018-10-16 07:45)
DX: K43.2 Incisional hernia without obstruction or gangrene (principal); M62.08 Separation of muscle (nontraumatic), other site; I10 Essential (primary) hypertension; E78.5 Hyperlipidemia, unspecified
CPT/HCPCS: 49565; 49568; 15734; 36415; 80048; 83735; 85025; 87070; 87075; 87205; 94760; 97116; 97161; 97530; C1781; G0378; J0131; J0690; J1170; J1644; J2250; J2270; J3010

== ENCOUNTER 2019-01-03 19:03 | Emergency (ER) | payer MEDICARE, SELFPAY ==
[2018-10-16 08:14] VITALS: BMI 30.8
[2019-01-03 19:12] VITALS: BP 123/79; PULSE 52; RESP 16; TEMP 36.6; O2SAT 96; BMI 29.9
[2019-01-03 19:30] VITALS: BP 145/88; PULSE 98; RESP 16; O2SAT 94
[2019-01-03] MEDS: SODIUM CHLORIDE 0.9% 1,000 ML 1000 ML IV (20:10)
[2019-01-03] MEDS: ONDANSETRON 4 MG/2 ML INJ IV (20:10)
--- NOTE | 2019-01-03 20:46 | ED_ITS ---
HPI - Abdominal Pain General Chief Complaint: Abdominal Pain Stated Complaint: STOMACH PAIN Time Seen by Provider: 01/03/19 20:44 Source: patient and family Mode of arrival: ambulatory Limitations: no limitations History of Present Illness HPI narrative: This is a 73-year-old male comes to the emergency department with complaint of abdominal pain. patient started having diarrhea last night he had diarrhea hourly throughout the night and into today. He started vomiting about 4:00 a.m. this afternoon and vomited for several hours. He states he is feeling better now after receiving some fluids and Zofran. Patient has felt chilled and feverish intermittently. He states pain was throughout his abdomen, but p articularly across the belt line. He did feel like his in his back a little bit. Right now it is still present and a 4 but much better and he defers any other pain medicine. Patient has had multiple abdominal surgeries for hernia repair with recurrence and had had mesh. Patient became anxious as his most recent surgery was in October and he was concerned that there may be some issue. Related Data Home Medications Medication Instructions Recorded Confirmed Clotrimazole-betamethasone See Rx Instructions .ROUTE .COMPLEX 12/19/17 11/04/18 aspirin 81 mg tablet,delayed 81 mg PO DAILY 06/03/18 11/04/18 release Previous Rx's Medication Instructions Recorded chlorthalidone 25 mg tablet 25 mg PO DAILY #90 tab 07/03/18 atorvastatin 20 mg tablet 20 mg PO HS #90 tab 09/18/18 acetaminophen 650 mg PO Q6HR #30 tab 10/18/18 methocarbamol 750 mg PO QID #16 tab 10/18/18 oxycodone 5 mg PO Q4HR PRN #10 tab 10/18/18 polyethylene glycol 3350 17 gm PO BID #20 ea 10/18/18 diltiazem HCl 120 mg 120 mg PO DAILY #90 cap 12/02/18 capsule,extended release 24 hr levofloxacin [Levaquin] 750 mg PO DAILY #10 tab 01/03/19 Allergies Allergy/AdvReac Type Severity Reaction Status Date / Time hydrochlorothiazide Allergy Severe ANGIOEDEMA Verified 01/03/19 19:18 (W/ LISINOPRIL/HCT) lisinopril Allergy Severe ANGIOEDEMA Verified 01/03/19 19:18 Review of Systems Review of Systems ROS Unobtainable: All systems reviewed & are unremarkable except as noted in HPI and below Cardiovascular Cardiovascular: Denies chest pain and Denies dyspnea Respiratory Respiratory: Denies dyspnea Gastrointestinal Gastrointestinal: Reports abdominal pain, Denies melena, Denies hematochezia, Reports change in bowel habits, Reports diarrhea, Reports nausea and Reports vomiting Genitourinary Genitourinary: Denies hematuria, Denies flank pain, Denies testicular pain, Denies urinary frequency, Denies urinary hesitancy, Denies urinary incontinence and Denies urinary urgency [facility] Medical History Arthritis (Chronic) Constipation (Acute) Fractures (Resolved) GERD (gastroesophageal reflux disease) (Acute) History of headache (Acute) Hyperlipemia (Chronic) Hypertension (Chronic) Inguinal hernia (Resolved ~07/2014) Irregular heartbeat (Acute) Prostate cancer (Resolved) Sinus drainage (Acute) Ulcer (Acute) Surgical History Hx of hernia repair (Resolved 07/2014) Hx of knee surgery (Resolved) Hx of prostatectomy (Acute) Status post radical cystoprostatectomy Family History (Updated 09/17/18 @ 11:49 by Cristy Avalos RN) Father Hypertension, essential Sister Age: 75 Cerebrovascular accident (CVA), unspecified mechanism Hypertension, essential Mother Cancer Social History household members: spouse Smoking Status: Never smoker second hand exposure: No alcohol intake: current substance use type: does not use Family History Father Hypertension, essential Sister Age: 75 Cerebrovascular accident (CVA), unspecified mechanism Hypertension, essential Mother Cancer Social History household members: spouse Smoking Status: Never smoker second hand exposure: No alcohol intake: current substance use type: does not use Exam Narrative Exam Narrative: GENERAL: Alert and oriented x three, well-nourished male in mild distress. HEENT: Head normocephalic, atraumatic, EOMI, pupils reactive, face symmetric, moist mucous membranes NECK: Supple, full range of motion CARDIOVASCULAR: Regular rate and rhythm without murmurs, rubs or gallops. RESPIRATORY: Breath sounds equal bilaterally, no wheezes rales or rhonchi. ABDOMEN: Soft, nontender. Normoactive bowel sounds all 4 quadrants. No guarding or rebound, rigidity, no mass. patient has healed midline incision, there is a mild amount of distention although I am not able to palpate a discrete hernia in the central portion of the incision. : No CVA tenderness EXTREMITIES: Normal range of motion, no clubbing or edema. Neurovascularly intact NEUROLOGICAL: Cranial nerves II through XII grossly intact. Moving all extremities SKIN: Warm, dry, no petechiae, no rashes or lesions. Initial Vital Signs Initial Vital Signs: Vital Signs Temperature 97.8 F 01/03/19 19:12 Pulse Rate 52 L 01/03/19 19:12 Respiratory Rate 16 01/03/19 19:12 Blood Pressure 123/79 01/03/19 19:12 Pulse Oximetry 96 01/03/19 19:12 Course Orders Ordered: ED Orders 01/03/19 21:47 CT abdomen pelvis w con Stat 01/03/19 21:54 Urine Microscopic Stat Discontinued Medications Sodium Chloride (Normal Saline 0.9%) 1,000 mls @ 1,000 mls/hr IV BOLUS ONE Stop: 01/03/19 20:47 Last Infusion: 01/03/19 22:20 Dose: 0 mls/hr Documented by: Admin: 01/03/19 20:10 Dose: 1,000 mls/hr Documented by: ISAÍAS Ondansetron HCl (Zofran) 4 mg IV NOW ONE Stop: 01/03/19 19:49 Last Admin: 01/03/19 20:10 Dose: 4 mg Documented by: ISAÍAS Vital Signs Vital signs: Vital Signs - 8 hr 01/03/19 22:33 01/03/19 23:22 01/04/19 00:27 Pulse Rate 94 H 94 H 93 H Respiratory Rate 22 16 18 Blood Pressure 117/75 Blood Pressure [Right Arm] 139/87 112/80 Pulse Oximetry 98 96 95 MDM - Abdominal Pain Lab Data Attestation: I reviewed the patient's lab results. Result diagrams: 01/03/19 20:53 01/03/19 20:53 Labs: Lab Results 01/03/19 01/03/19 01/03/19 Range/Units 20:53 20:53 20:53 WBC 13.7 H (4.5-11.0) X10^3/uL RBC 4.61 (4.5-5.9) X10^6/uL Hgb 14.4 (13.5-17.5) g/dL Hct 42.7 (41-53) % MCV 92.7 (80-100) fL MCH 31.3 (26-34) PG MCHC 33.7 (30-36) % RDW 13.4 (11.6-14.8) % Plt Count 284 (150-400) X10^3/uL Neut % (Auto) 86.3 H (50-75) % Lymph % (Auto) 3.3 L (25-40) % [place] % (Auto) 9.7 (3-14) % Eos % (Auto) 0.4 L (2-4) % Baso % (Auto) 0.3 (0-2) % Neut # (Auto) 77121 H (6741-0181) /uL Lymph # (Auto) 400 L (6976-0220) /uL [place] # (Auto) 1300 H (0-900) /uL Eos # (Auto) 100 (0-450) /uL Baso # (Auto) 0 (0-100) /uL PT 11.6 (10.1-12.7) SECONDS INR 1.0 (0.9-1.3) APTT 29 (26.4-36.2) SECONDS Sodium 140 (137-145) mmol/L Potassium 3.4 (3.4-5.1) mmol/L Chloride 100 (98-107) mmol/L Carbon Dioxide 32 (22-32) mmol/L BUN 14 (9-20) mg/dL Creatinine 0.90 (0.66-1.25) mg/dL Estimated GFR > 60.0 (>60) mL/min BUN/Creatinine Ratio 15.6 (6-22) Glucose 134 H (80-110) mg/dL Calcium 10.0 (8.4-10.2) mg/dL Total Bilirubin 0.7 (0.2-1.3) mg/dL AST 24 (17-59) IU/L ALT 23 (21-72) IU/L Alkaline Phosphatase 64 (38-126) U/L Total Protein 6.7 (6.3-8.2) g/dL Albumin 3.8 (3.5-5.0) g/dL Globulin 2.9 (1.7-4.1) g/dL Albumin/Globulin Ratio 1.3 (1.0-2.8) Lipase 51 (23-300) U/L Urine RBC (0-5/HPF) Urine WBC (0-5/HPF) Ur Squamous Epith Cells (0-5/HPF) Urine Bacteria (None) Urine Mucus (Negative) Ur Culture Indicated? 01/03/19 Range/Units 21:54 WBC (4.5-11.0) X10^3/uL RBC (4.5-5.9) X10^6/uL Hgb (13.5-17.5) g/dL Hct (41-53) % MCV (80-100) fL MCH (26-34) PG MCHC (30-36) % RDW (11.6-14.8) % Plt Count (150-400) X10^3/uL Neut % (Auto) (50-75) % Lymph % (Auto) (25-40) % [place] % (Auto) (3-14) % Eos % (Auto) (2-4) % Baso % (Auto) (0-2) % Neut # (Auto) (9761-5810) /uL Lymph # (Auto) (8633-7757) /uL [place] # (Auto) (0-900) /uL Eos # (Auto) (0-450) /uL Baso # (Auto) (0-100) /uL PT (10.1-12.7) SECONDS INR (0.9-1.3) APTT (26.4-36.2) SECONDS Sodium (137-145) mmol/L Potassium (3.4-5.1) mmol/L Chloride (98-107) mmol/L Carbon Dioxide (22-32) mmol/L BUN (9-20) mg/dL Creatinine (0.66-1.25) mg/dL Estimated GFR (>60) mL/min BUN/Creatinine Ratio (6-22) Glucose (80-110) mg/dL Calcium (8.4-10.2) mg/dL Total Bilirubin (0.2-1.3) mg/dL AST (17-59) IU/L ALT (21-72) IU/L Alkaline Phosphatase (38-126) U/L Total Protein (6.3-8.2) g/dL Albumin (3.5-5.0) g/dL Globulin (1.7-4.1) g/dL Albumin/Globulin Ratio (1.0-2.8) Lipase (23-300) U/L Urine RBC 1-5/hpf (0-5/HPF) Urine WBC 0-1/hpf (0-5/HPF) Ur Squamous Epith Cells 0-1 /hpf (0-5/HPF) Urine Bacteria None seen (None) Urine Mucus 1+ H (Negative) Ur Culture Indicated? Cult not indicated Point of care testing: Urine Dip Bedside Urine Glucose Negative Bedside Urine Bilirubin - Negative Bedside Urine Ketone + 15 Urine Specific [place] 1.025 Bedside Urine Occult Blood + Bedside Urine pH 5.5 Bedside Urine Protein +/- 15 Bedside Urine Urobilinogen - Negative Bedside Urine Nitrite - Negative Bedside Urine Leukocytes - Negative Esterase Imaging Data CT scan - abdomen: Radiologist's impression: Apparent circumferential wall thickening involving the distal ascending colon, hepatic flexure of the colon and least proximal portion of the colon compatible with colitis. No abscess or free air. Normal appendix. Patient has nonspecific fluid collections both superficial and deep to the anterior abdominal wall musculature likely a postoperative in this patient with history of multiple abdominal surgery. Fat containing right inguinal hernia containing in over 2.3 x 2. 7 cm area of low attenuation. Fat containing right inguinal hernia locationed in right inguinal canal, possibly represents a right testy, less likely represent focal fluid collection. ECG Data Attestation: I personally reviewed and interpreted this ECG as follows: Prior ECG tracings: not available for review Interpretation: Sinus rhythm with frequent PVCs, rate of 90 P are 189, QRS of 113 and QTC of 434. MDM Narrative Medical decision making narrative: Patient case was discussed with Dr. Palomares, who saw the patient for his surgery prior. We discussed patient's fluid collections as well as findings consistent with colitis with patient's vomiting and diarrhea. Suspect that his symptoms today are more related to colitis and his additional findings on his CT are not the main cause for his presentation today. Patient is to follow up with the general surgery office. He is to start antibiotics if he is not having any improvement of his symptoms and is to return if worsening symptoms. Discharge Plan Departure Patient Disposition: Home Clinical Impression: Colitis Discharge Date/Time: 01/04/19 00:28 Instructions: DI for Colitis Activity Restrictions/Additional Instructions: Follow up with Dr. Palomares in the next week if symptoms are not improving. Her CT shows findings consistent with colitis there is also a small area of fluid in the anterior abdominal wall that is likely postsurgical. Start antibiotics if your symptoms are not improving. You may take ibuprofen and/or Tylenol as needed for pain. Return to the emergency department for fevers greater 100.4 F, rapidly worsening abdominal pain, persistent vomiting, worsening diarrhea, black or bloody stools, lightheadedness, passing out or other new or concerning symptoms. Prescriptions: New levofloxacin [Levaquin] 750 mg tablet 750 mg PO DAILY Qty: 10 RF: 0 No Action Clotrimazole-betamethasone See Rx Instructions .ROUTE .COMPLEX RF: 0 aspirin [Adult Low Dose Aspirin] 81 mg tablet,delayed release (DR/EC) 81 mg PO DAILY RF: 0 chlorthalidone 25 mg tablet 25 mg PO DAILY Qty: 90 RF: 0 atorvastatin [Lipitor] 20 mg tablet 20 mg PO HS Qty: 90 RF: 0 diltiazem HCl 120 mg capsule,extended release 24hr 120 mg PO DAILY Qty: 90 RF: 0 methocarbamol 500 mg Tablet 750 mg PO QID Qty: 16 RF: 0 acetaminophen 325 mg Tablet 650 mg PO Q6HR Qty: 30 RF: 0 polyethylene glycol 3350 17 gram Powder In Packet 17 gm PO BID Qty: 20 RF: 0 oxycodone 5 mg Tablet 5 mg PO Q4HR PRN (Reason: Pain, Moderate (4-6)) Qty: 10 RF: 0 Referrals: Dinah Asher PA-C [Primary Care Provider] - Otoniel Palomares MD [Physician] -
[2019-01-03 21:02] LABS: Add Manual Diff / Slide Review NO; Basophils Absolute Auto 0 /uL (0-100); Basophils Percent Auto 0.3 % (0-2); Eosinophils Absolute Auto 100 /uL (0-450); Eosinophils Percent Auto 0.4 % (2-4); Hematocrit 42.7 % (41-53); Hemoglobin 14.4 g/dL (13.5-17.5); Lymphocytes Absolute Auto 400 /uL (1100-4500); Lymphocytes Percent Auto 3.3 % (25-40); Mean Corpuscular HGB Conc 33.7 % (30-36); Mean Corpuscular Hemoglobin 31.3 PG (26-34); Mean Corpuscular Volume 92.7 fL (80-100); Monocytes Absolute Auto 1300 /uL (0-900); Monocytes Percent Auto 9.7 % (3-14); Neutrophils Absolute Auto 11800 /uL (1500-7000); Neutrophils Percent Auto 86.3 % (50-75); Platelet Count 284 X10^3/uL (150-400); Red Blood Cell Count 4.61 X10^6/uL (4.5-5.9); Red Cell Distribution Width 13.4 % (11.6-14.8); White Blood Cell Count 13.7 X10^3/uL (4.5-11.0)
[2019-01-03 21:12] LABS: Alanine Aminotransferase 23 IU/L (21-72); Albumin 3.8 g/dL (3.5-5.0); Albumin Globulin Ratio 1.3 (1.0-2.8); Alkaline Phosphatase 64 U/L (38-126); Aspartate Aminotransferase 24 IU/L (17-59); BUN Creatinine Ratio 15.6 (6-22); Bilirubin Total 0.7 mg/dL (0.2-1.3); Blood Urea Nitrogen 14 mg/dL (9-20); Carbon Dioxide 32 mmol/L (22-32); Chloride 100 mmol/L (98-107); Estimated Glomerular Filt Rate > 60.0 mL/min (>60); Globulin 2.9 g/dL (1.7-4.1); Glucose 134 mg/dL (80-110); HEMOLYSIS < 15 (0-50); Lipase 51 U/L (23-300); Potassium 3.4 mmol/L (3.4-5.1); Sodium 140 mmol/L (137-145); Total Protein 6.7 g/dL (6.3-8.2)
[2019-01-03 21:13] LABS: Prothrombin Time 11.6 SECONDS (10.1-12.7)
[2019-01-03 21:16] LABS: PTT Partial Thromboplastin Tim 29 SECONDS (26.4-36.2)
--- NOTE | 2019-01-03 21:47 | DI.CT.S_ITS ---
PROCEDURE: CT ABDOMEN PELVIS W CON INDICATIONS: abdominal pain, vomiting, diarrhea, multi-abd surgery TECHNIQUE: After the administration of intravenous contrast, 5 mm thick sections acquired from the diaphragm to the symphysis. 5 mm coronal and sagittal reformats were acquired. For radiation dose reduction, the following was used: automated exposure control, adjustment of mA and/or kV according to patient size. COMPARISON: [facility], CT, CT ABDOMEN PELVIS WO [facility], 09/23/2018, 14:56. FINDINGS: Image quality: Excellent. ABDOMEN: Lung bases: Lung bases are clear. Heart size is normal. Solid organs: Liver is normal in size and enhancement. Gallbladder wall is not thickened. Biliary system is non dilated. Pancreas enhances normally. Spleen is normal in size and enhancement. No adrenal nodules. Kidneys demonstrate normal size and enhancement, without hydronephrosis. Peritoneum and bowel: There is wall thickening is seen of the colon, with a nodular appearance. This extends from the hepatic flexure through the rectum. No dilated loops of small bowel are seen. No free air or significant free fluid can be seen. Nodes and vessels: No retroperitoneal or mesenteric adenopathy by size criteria. Aorta and inferior vena cava are normal in size. Atherosclerotic calcification is noted. Miscellaneous: There is a fluid collection seen within the anterior abdominal wall superior to the umbilicus and to the left of the midline with rim enhancement that measures 3.7 x 2.1 cm in greatest axial dimension. No recurrent ventral wall hernias are seen. PELVIS: Genitourinary: Bladder wall thickness is normal. Miscellaneous: No enlarged inguinal or pelvic lymph nodes are seen. There is a fluid and fat-containing right inguinal hernia seen. Bones: No suspicious bony lesions. No vertebral body compression fractures. Age-appropriate bony degenerative changes are seen. IMPRESSION: A broad area of wall thickening is seen of the colon. Please correlate with infectious or inflammatory causes, including C. difficile colitis. There is a 3.7 cm likely abscess involving the anterior wall. Differential diagnosis includes a benign postoperative collection, however. Please correlate with physical examination findings. No recurrent anterior abdominal wall hernia can be seen. There is a right inguinal hernia seen, which contains fat and fluid. Note: No significant discrepancy from the preliminary report. Dictated by: Amadou Heart M.D. on 01/04/2019 at 8:20 Approved by: Amadou Heart M.D. on 01/04/2019 at 8:27
[2019-01-03 21:55] LABS: Bacteria Urine None Seen
[2019-01-03 22:00] LABS: Mucus Urine 1+ (Negative); RBC Urine 1-5/HPF (0-5/HPF); Squamous Epithelial Cell Urine 0-1 /HPF (0-5/HPF); WBC Urine 0-1/HPF (0-5/HPF)
[2019-01-03 22:01] LABS: Culture Indicated Urine Cult Not Indicated
[2019-01-03 22:33] VITALS: BP 139/87; PULSE 94; RESP 22; O2SAT 98
[2019-01-03 23:22] VITALS: BP 112/80; PULSE 94; RESP 16; O2SAT 96
[2019-01-04 00:27] VITALS: BP 117/75; PULSE 93; RESP 18; O2SAT 95
== END 2019-01-04 00:28 | disposition home or self-care (01) ==
PROVIDERS: Emergency Provider Emergency Medicine; Family Provider Physician Assistant; PCP Physician Assistant
DX: K52.9 Noninfective gastroenteritis and colitis, unspecified (principal); R10.9 Unspecified abdominal pain
CPT/HCPCS: 36415; 74177; 80053; 81003; 81015; 83690; 85025; 85610; 85730; 93005; 96361; 96374; 99283; 99285; J2405; Q9967

== ENCOUNTER → 2019-04-02 15:07 | Outpatient (CLI) | payer MEDICARE, SELFPAY ==
[2018-10-16 08:14] VITALS: BMI 30.8
--- NOTE | 2019-04-02 15:09 | DI.RAD.S_ITS ---
PROCEDURE: XR LUMBAR SPINE 2-3V INDICATIONS: Low back pain left side - suspect osteoarthritis TECHNIQUE: 3 views of the lumbar spine were acquired. COMPARISON: [facility], [place], L-SPINE 2-3 VIEWS, 08/12/2015, 10:01. [facility], [place], L-SPINE 2-3 VIEWS, 06/18/2009, 12:18. FINDINGS: Bones: 5 [id number] vertebrae are present. There is normal bony alignment. No vertebral body compression fractures. No suspicious bony lesions. While there is no significant degenerative disc disease along the lumbosacral spine there is a mild to moderate degree of facet osteoarthritis at L4-5 and L5-S1. Soft tissues: Overlying bowel gas pattern is normal. No suspicious soft tissue calcifications. 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 Dictated by: Santiago Haddad M.D. on 04/02/2019 at 15:43 Approved by: Santiaog Haddad M.D. on 04/02/2019 at 15:44
--- NOTE | 2019-04-02 15:09 | DI.RAD.S_ITS ---
PROCEDURE: XR TOE LT MIN 2V INDICATIONS: Pain in 5th toe of left foot - callus medial side TECHNIQUE: 3 views of the fifth toe(s) acquired. COMPARISON: None. FINDINGS: Bones: No fractures or dislocations. No suspicious bony lesions. Soft tissues: No suspicious soft tissue densities. IMPRESSION: Source of pain at the fifth digit not found. Dictated by: Santiago Haddad M.D. on 04/02/2019 at 15:42 Approved by: Santiago Haddad M.D. on 04/02/2019 at 15:43
== END ==
PROVIDERS: PCP Physician Assistant; Visit Provider Physician Assistant
DX: M54.5 Low back pain (principal); M47.817 Spondylosis without myelopathy or radiculopathy, lumbosacral region; M47.816 Spondylosis without myelopathy or radiculopathy, lumbar region; M79.675 Pain in left toe(s)
CPT/HCPCS: 72100; 73660

== ENCOUNTER 2019-04-28 09:00 | Outpatient (RCR) | payer MEDICARE, SELFPAY ==
[2018-10-16 08:14] VITALS: BMI 30.8
--- NOTE | 2019-04-23 18:57 | PT.OIE ---
Current Diagnoses Low back pain (04/23/19) Abnormal posture (04/23/19) Weakness (04/23/19) Past Medical History (Last Reviewed 01/03/19 @ 21:01 by Estephanie Valdivia DO) Arthritis (Chronic) Constipation (Acute) Fractures (Resolved) GERD (gastroesophageal reflux disease) (Acute) History of headache (Acute) Hyperlipemia (Chronic) Hypertension (Chronic) Inguinal hernia (Resolved ~07/2014) Irregular heartbeat (Acute) Prostate cancer (Resolved) Sinus drainage (Acute) Ulcer (Acute) Past Surgical History (Last Reviewed 01/03/19 @ 21:01 by Estephanie Valdivia DO) Hx of hernia repair (Resolved 07/2014) Hx of knee surgery (Resolved) Hx of prostatectomy (Acute) Status post radical cystoprostatectomy Visit Care Team Role Provider Type Dinah Asher PA-C Attending Provider Advanced Intelligence Clerk Primary Care Provider Specialty: Medical Address: [address] [place] [address], [address], [facility] Email: [email or web address] Physical Therapy Initial Evaluation PT-OP-A Visit Information Start: 04/23/19 08:13 Freq: Status: Active Protocol: Document 04/23/19 09:45 MT (Rec: 04/23/19 14:23 MT [id number]) Out-Patient Physical Therapy Visit Information Visit Information Visit Type Initial Evaluation Visit Start Time 09:45 Visit Stop Time 10:28 Total Visit Minutes 43 Visit Number 1 Number of PRODUCT SAFETY COMPLIANCE LEADER Visits 0 PT-OP-B Current Condition Start: 04/23/19 08:13 Freq: Status: Active Protocol: Document 04/23/19 09:45 MT (Rec: 04/23/19 14:23 MT [id number]) Current Condition History of Current Condition Onset Date 2 years ago History of Current Condition pt reported that 2 years ago he started having back pain after unloading myah decorations and usually when that happens it gets better over time, but it didn't fully get better this time. About a month ago pt reported that he could not get out of bed the pain was so bad. Went to the chiropractor and has had 3 -4 treatments which has improved it 60-70%, but has still not gotten fully better . Pt got an X ray and that had no significant findingd. Pt had hernia surgery this summer - removed 3 of them and continues to have 3 more hernias - one in each groin and one on the L amdomen. 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 Pt goes on a walk 4-5 miles per day and has found that that seems to have improved it. pt sits in a specific position in order to avoid pain. he usually feels like he is shfited to the right. 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 Pt has a leg length discrepancy that he has seen the dr for. His R leg is shorter and he has about a 1/4 inch lift in his shoe that he has been wearing for 5 years now, which he thinks does help with his knee and hip problem on his R LE. Treatment Goals Patient/Caregiver Goals decrease pain, be able to sit and stand straight, be able to do house renovations, house work PT-OP-C Subjective Start: 04/23/19 08:13 Freq: Status: Active Protocol: Document 04/23/19 09:45 MT (Rec: 04/23/19 14:23 MT [id number]) Patient Questionnaires Oswestry Low Back Index Oswestry Score 36 Oswestry Impairment 20 to 39% Impaired (Score 20- 39) OP-PT Pain Assessment Location low back Pain Location Details mostly L low back Intensity 0 Scale Used increases to 4-5 with movement Description Aching,Pinching,Shooting Description- Other knotted up, nerve pinch pain Frequency Constant Radiating Location radiates to higher and lower segments Other Pain Aggravating Factors moving it wrong, prolonged sitting Pain Alleviating Factors Cold Other Pain Alleviating Factors walking PT-OP-F Manual Assessment Start: 04/23/19 08:13 Freq: Status: Active Protocol: Document 04/23/19 09:45 MT (Rec: 04/23/19 14:23 MT [id number]) Manual Assessments Soft Tissue Assessment Soft Tissue Mobility Assessment Pt has atrophied paraspinals along lumbar and scaral spine levels, increased tissue tightness B Lower thoracic spine area PT-OP-G Mobility & Gait Start: 04/23/19 08:13 Freq: Status: Active Protocol: Document 04/23/19 09:45 MT (Rec: 04/23/19 14:23 MT [id number]) OP Mobility Evaluation Bed Mobility Rolling pt performed rolling in bed and supine to sit with segmental rotation. He had an increase in pain as he was performing bed mobility PT-OP-J Posture/Palpation/Skin Start: 04/23/19 08:13 Freq: Status: Active Protocol: Document 04/23/19 09:45 MT (Rec: 04/23/19 14:23 MT [id number]) Posture Evaluation Shaquille Postural Classification System Vertebral Compression Test 1 Elbow Flexion Test 1 Lumbar Protective Mechanism Left AP 1 Lumbar Protective Mechanism Right AP 1 Lumbar Protective Mechanism Left PA 1 Lumbar Protective Mechanism Right PA 1 Comments Posture Comments Pt had pain with LPM PA in both directions Sitting Posture: Pt has forward head posture, rounded shoulders, and his rib cage has an anterior tilt compared to his pelvis alignment. He sits shifted to the right in order to avoid pain. PT-OP-K Range of Motion Start: 04/23/19 08:13 Freq: Status: Active Protocol: Document 04/23/19 09:45 MT (Rec: 04/23/19 14:23 MT [id number]) Lumbar Spine Range of Motion Lumbar Spine Active Testing Position Standing Rotation Left 60 Rotation Right 47 ROM Limitations Soft Tissue Tightness,Pain Comments R SB: 15cm L SB: 13cm flex: 15cm ext: 7cm Hip Goniometric Range of Motion Hip Left Hip ROM WFL No Testing Position Supine Straight Leg Raise 75 Right Hip ROM WFL No Testing Position Supine Straight Leg Raise 80 PT-OP-L Special Tests Start: 04/23/19 08:13 Freq: Status: Active Protocol: Document 04/23/19 09:45 MT (Rec: 04/23/19 14:23 MT [id number]) Special Tests Lumbar Spine Special Tests Compression Test Results neg B Slump Test Results pos L Comments pt has increased pain with cervical flexion and thoracic slump B Andrea Test Results negative B Comments required towel to pull knee to chest Straight Leg Raise Test Results neg B PT-OP-M Strength Start: 04/23/19 08:13 Freq: Status: Active Protocol: Document 04/23/19 09:45 MT (Rec: 04/23/19 14:23 MT [id number]) Hip Strength Hip Manual Muscle Testing Left Flexion (L2) 3+ Fair+ Abduction 4- Good- External Rotation 3+ Fair+ Internal Rotation 3+ Fair+ Right Flexion (L2) 4 Good Abduction 4- Good- External Rotation 4 Good Internal Rotation 4 Good Knee Strength Knee Manual Muscle Testing Left Flexion (S2) 4- Good- Extension (L3) 4- Good- Right Flexion (S2) 4- Good- Extension (L3) 3+ Fair+ Comments B measured in seated Ankle/Foot Strength Ankle and Foot Manual Muscle Testing Left Dorsiflexion (L4) 4 Good Plantarflexion (S1) 4- Good- Right Dorsiflexion (L4) 4+ Good+ Plantarflexion (S1) 4+ Good+ Comments B measured in seated PT-OP-Q Treatments Start: 04/23/19 08:13 Freq: Status: Active Protocol: Document 04/23/19 09:45 MT (Rec: 04/23/19 14:23 MT [id number]) Therapeutic Exercises Supine Exercises TA marches Comments added to HEP LTR Side bilateral Comments added to HEP pelvic tilt Side bilateral Comments added to HEP; attempted bridging, but aggravated back pain PT-OP-T Assessment and Plan Start: 04/23/19 08:13 Freq: Status: Active Protocol: Document 04/23/19 09:45 MT (Rec: 04/23/19 14:23 MT [id number]) Physical Therapy Assessment Rehab Potential Rehabilitation Potential Good Evaluation Complexity Number of Personal Factors/Comorbidities 3 or More Number of Body Systems Impaired 4 or More Clinical Presentation at Evaluation Evolving Impairments Impairments Activity Tolerance,Functional Activities,Functional Mobility ,Gait,Pain,Posture,ROM, Strength,Transfers Goals pain Short Term Goal (STG) pt will be able to bed mobility using log roll technique without increase in pain greater than 2 points on VAS STG Duration 05/24/19 Retirement Goal (LTG) pt will report being able to perform all ADL's and house work that he needs to do without increase in VAS greater than 2 points. LTG Duration 06/24/19 posture Short Term Goal (STG) pt will be able to demonstrate proper sitting and standing posture and will be able to implement corrections without PT cueing in order to improve pt awareness and daily sitting posture for improved activity tolerance in prolonged positions. STG Duration 05/24/19 Facility Practice Specialist Goal (LTG) pt will achieve at least a 4/5 on VCT, EFT, and LPM in order to demonstrate improve postural stability and increase activtiy tolerance LTG Duration 2/18/20 strength Short Term Goal (STG) pt will be independent and compliant with HEP STG Duration 05/24/19 Retirement Goal (LTG) pt will increase B LE strength to at least 4+/5 in order to improve pt ability to participate in ADL's and functional mobility LTG Duration 06/24/19 Oswestry Facility Practice Specialist Goal (LTG) pt will improve Oswestry score to 19/100 in order to demonstrate improved ability to participate in ADL's LTG Duration 06/24/19 Assessment Summary Assessment Pt presents to PT with low back pain. He has a recent history of hernia surgery and still currently has 3 hernias still in his abdomen/groin region. He has increased pain with his bed mobility and transitions between positions and reports not being able to participate in as much housework and activity as he normally does. His sitting posture is shifted to the right in order to avoid pain in his L low back. He has decreased B LE and trunk strength and limits his ROM d/ t pain. He would benefit from skilled PT in order to improve his strength and ROM and decrease his pain with daily activities so that he may improve his participation in ADL's and functional mobility. Physical Therapy Plan Frequency and Duration Frequency of Treatment 2x/Week Duration of Treatment 2 months Plan of Care Start Date 04/23/19 Plan of Care End Date 06/24/19 Therapeutic Interventions Therapeutic Interventions Aquatic Therapy,Balance Training,Gait Training,Home Exercise Program,Joint Mobilizations,Manual Therapy, Neuromuscular Re-education, Patient/Caregiver Education, Self-Care/Home Management,Soft Tissue Mobilization,Taping, Therapeutic Activities, Therapeutic Exercises Modalities Cold Pack/Ice Massage,Electric Stimulation,Hot Packs, Traction- Mechanical, Ultrasound Next Visit Focus/Plan Next Note Type Treatment Note Next Visit Plan teach log roll technique, review and progress core exercises for HEP, manual therapy to region, sittingstanding posture education, education on lifting mechanics (less than 40lbs)
--- NOTE | 2019-04-24 09:32 | PT.OTN ---
Current Diagnoses Low back pain (04/24/19) Abnormal posture (04/24/19) Weakness (04/24/19) Physical Therapy Treatment Note PT-OP-A Visit Information Start: 04/23/19 08:13 Freq: Status: Active Protocol: Document 04/24/19 07:29 [facility] (Rec: 04/24/19 09:31 [facility] [id number]) Out-Patient Physical Therapy Visit Information Visit Information Visit Type Treatment Note Visit Start Time 08:20 Visit Stop Time 08:58 Total Visit Minutes 38 Visit Number 2 Number of EDITOR INDEX Visits 0 PT-OP-B Current Condition Start: 04/23/19 08:13 Freq: Status: Active Protocol: Document 04/23/19 09:45 MT (Rec: 04/23/19 14:23 MT [id number]) Current Condition History of Current Condition Onset Date 2 years ago History of Current Condition pt reported that 2 years ago he started having back pain after unloading myah decorations and usually when that happens it gets better over time, but it didn't fully get better this time. About a month ago pt reported that he could not get out of bed the pain was so bad. Went to the chiropractor and has had 3 -4 treatments which has improved it 60-70%, but has still not gotten fully better . Pt got an X ray and that had no significant findingd. Pt had hernia surgery this summer - repaired 3 of them and continues to have 3 more hernias - one in each groin and one on the L amdomen. 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 Pt goes on a walk 4-5 miles per day and has found that that seems to have improved it. pt sits in a specific position in order to avoid pain. he usually feels like he is shfited to the right. 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 Pt has a leg length discrepancy that he has seen the dr for. His R leg is shorter and he has about a 1/4 inch lift in his shoe that he has been wearing for 5 years now, which he thinks does help with his knee and hip problem on his R LE. Treatment Goals Patient/Caregiver Goals decrease pain, be able to sit and stand straight, be able to do house renovations, house work PT-OP-C Subjective Start: 04/23/19 08:13 Freq: Status: Active Protocol: Document 04/24/19 07:29 [facility] (Rec: 04/24/19 09:31 [facility] [id number]) OP-PT Subjective Patient Comments Patient Comments Unsure if he remembered exercises PT-OP-F Manual Assessment Start: 04/23/19 08:13 Freq: Status: Active Protocol: Document 04/23/19 09:45 MT (Rec: 04/23/19 14:23 MT [id number]) Manual Assessments Soft Tissue Assessment Soft Tissue Mobility Assessment Pt has atrophied paraspinals along lumbar and scaral spine levels, increased tissue tightness B Lower thoracic spine area PT-OP-G Mobility & Gait Start: 04/23/19 08:13 Freq: Status: Active Protocol: Document 04/23/19 09:45 MT (Rec: 04/23/19 14:23 MT [id number]) OP Mobility Evaluation Bed Mobility Rolling pt performed rolling in bed and supine to sit with segmental rotation. He had an increase in pain as he was performing bed mobility PT-OP-J Posture/Palpation/Skin Start: 04/23/19 08:13 Freq: Status: Active Protocol: Document 04/23/19 09:45 MT (Rec: 04/23/19 14:23 MT [id number]) Posture Evaluation Shaquille Postural Classification System Vertebral Compression Test 1 Elbow Flexion Test 1 Lumbar Protective Mechanism Left AP 1 Lumbar Protective Mechanism Right AP 1 Lumbar Protective Mechanism Left PA 1 Lumbar Protective Mechanism Right PA 1 Comments Posture Comments Pt had pain with LPM PA in both directions Sitting Posture: Pt has forward head posture, rounded shoulders, and his rib cage has an anterior tilt compared to his pelvis alignment. He sits shifted to the right in order to avoid pain. PT-OP-K Range of Motion Start: 04/23/19 08:13 Freq: Status: Active Protocol: Document 04/23/19 09:45 MT (Rec: 04/23/19 14:23 MT [id number]) Lumbar Spine Range of Motion Lumbar Spine Active Testing Position Standing Rotation Left 60 Rotation Right 47 ROM Limitations Soft Tissue Tightness,Pain Comments R SB: 15cm L SB: 13cm flex: 15cm ext: 7cm Hip Goniometric Range of Motion Hip Left Hip ROM WFL No Testing Position Supine Straight Leg Raise 75 Right Hip ROM WFL No Testing Position Supine Straight Leg Raise 80 PT-OP-L Special Tests Start: 04/23/19 08:13 Freq: Status: Active Protocol: Document 04/23/19 09:45 MT (Rec: 04/23/19 14:23 MT [id number]) Special Tests Lumbar Spine Special Tests Compression Test Results neg B Slump Test Results pos L Comments pt has increased pain with cervical flexion and thoracic slump B Andrea Test Results negative B Comments required towel to pull knee to chest Straight Leg Raise Test Results neg B PT-OP-M Strength Start: 04/23/19 08:13 Freq: Status: Active Protocol: Document 04/23/19 09:45 MT (Rec: 04/23/19 14:23 MT [id number]) Hip Strength Hip Manual Muscle Testing Left Flexion (L2) 3+ Fair+ Abduction 4- Good- External Rotation 3+ Fair+ Internal Rotation 3+ Fair+ Right Flexion (L2) 4 Good Abduction 4- Good- External Rotation 4 Good Internal Rotation 4 Good Knee Strength Knee Manual Muscle Testing Left Flexion (S2) 4- Good- Extension (L3) 4- Good- Right Flexion (S2) 4- Good- Extension (L3) 3+ Fair+ Comments B measured in seated Ankle/Foot Strength Ankle and Foot Manual Muscle Testing Left Dorsiflexion (L4) 4 Good Plantarflexion (S1) 4- Good- Right Dorsiflexion (L4) 4+ Good+ Plantarflexion (S1) 4+ Good+ Comments B measured in seated PT-OP-Q Treatments Start: 04/23/19 08:13 Freq: Status: Active Protocol: Document 04/24/19 07:29 [facility] (Rec: 04/24/19 09:31 [facility] [id number]) Therapeutic Exercises Supine Exercises hip flex Supine Exercise Name single isometric Side bilateral Reps/Minutes 10 sec SKTC Supine Exercise Name w/opposite leg ext Side bilateral Reps/Minutes 30 sec heel slide Supine Exercise Name w/Tabd Side bilateral Reps/Minutes 10 TA marches Side bilateral Reps/Minutes 10 Comments added to HEP LTR Side bilateral Reps/Minutes 5 Comments added to HEP pelvic tilt Reps/Minutes 10 Therapeutic Activity Therapeutic Activity log roll Name edu w/log roll & rolling Manual Therapy Treatment Soft Tissue Mobilization QL Body Location L Mobilization Type Rolling Intensity/Depth Moderate Body Position Sidelying Neuro Re-Education Treatment Other Activities PNF Comments 1. ant lizzy & post depression rhythmic initiation to COI 2. mass flex & ext concentrics then COI PT-OP-T Assessment and Plan Start: 04/23/19 08:13 Freq: Status: Active Protocol: Document 04/24/19 07:29 [facility] (Rec: 04/24/19 09:31 [facility] [id number]) Physical Therapy Assessment Goals pain Short Term Goal (STG) pt will be able to bed mobility using log roll technique without increase in pain greater than 2 points on VAS STG Duration 05/24/19 Half-Way Goal (LTG) pt will report being able to perform all ADL's and house work that he needs to do without increase in VAS greater than 2 points. LTG Duration 06/24/19 posture Short Term Goal (STG) pt will be able to demonstrate proper sitting and standing posture and will be able to implement corrections without PT cueing in order to improve pt awareness and daily sitting posture for improved activity tolerance in prolonged positions. STG Duration 05/24/19 Bed Spring Maker Goal (LTG) pt will achieve at least a 4/5 on VCT, EFT, and LPM in order to demonstrate improve postural stability and increase activtiy tolerance LTG Duration 06/24/19 strength Short Term Goal (STG) pt will be independent and compliant with HEP STG Duration 05/24/19 Bed Spring Maker Goal (LTG) pt will increase B LE strength to at least 4+/5 in order to improve pt ability to participate in ADL's and functional mobility LTG Duration 06/24/19 Oswestry Bed Spring Maker Goal (LTG) pt will improve Oswestry score to 19/100 in order to demonstrate improved ability to participate in ADL's LTG Duration 06/24/19 Assessment Summary Assessment Pt did well with exercises with minimal cueing. IMproved rolling with PNF training and no pain. He was able to do a log roll down without pain but pain with sitting up from s/l . He had significant L sided QL tightness Physical Therapy Plan Frequency and Duration Frequency of Treatment 2x/Week Duration of Treatment 2 months Plan of Care Start Date 04/23/19 Plan of Care End Date 06/24/19 Next Visit Focus/Plan Next Note Type Treatment Note Next Visit Plan Review HEP, work on rolling, posture, manual therapy as needed
--- NOTE | 2019-04-28 10:05 | PT.OTN ---
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 About a month ago pt reported that he could not get out of bed the pain was so bad. Went to the chiropractor and has had 3 -4 treatments which has improved it 60-70%, but has still not gotten fully better . Pt got an X ray and that had no significant findingd. Pt had hernia surgery this summer - repaired 3 of them and continues to have 3 more hernias - one in each groin and one on the L amdomen. 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 Pt goes on a walk 4-5 miles per day and has found that that seems to have improved it. pt sits in a specific position in order to avoid pain. he usually feels like he is shfited to the right. 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 Pt has a leg length discrepancy that he has seen the dr for. His R leg is shorter and he has about a 1/4 inch lift in his shoe that he has been wearing for 5 years now, which he thinks does help with his knee and hip problem on his R LE. Treatment Goals Patient/Caregiver Goals decrease pain, be able to sit and stand straight, be able to do house renovations, house work PT-OP-C Subjective Start: 04/23/19 08:13 Freq: Status: Active Protocol: Document 04/28/19 09:04 [facility] (Rec: 04/28/19 10:04 [facility] [id number]) OP-PT Subjective Patient Comments Patient Comments Pt reprots rolling is better but has been icing more because pain has been up and down PT-OP-F Manual Assessment Start: 04/23/19 08:13 Freq: Status: Active Protocol: Document 04/23/19 09:45 [facility] (Rec: 04/23/19 14:23 MT [id number]) Manual Assessments Soft Tissue Assessment Soft Tissue Mobility Assessment Pt has atrophied paraspinals along lumbar and scaral spine levels, increased tissue tightness B Lower thoracic spine area PT-OP-G Mobility & Gait Start: 04/23/19 08:13 Freq: Status: Active Protocol: Document 04/23/19 09:45 [facility] (Rec: 04/23/19 14:23 MT [id number]) OP Mobility Evaluation Bed Mobility Rolling pt performed rolling in bed and supine to sit with segmental rotation. He had an increase in pain as he was performing bed mobility PT-OP-J Posture/Palpation/Skin Start: 04/23/19 08:13 Freq: Status: Active Protocol: Document 04/23/19 09:45 [facility] (Rec: 04/23/19 14:23 MT [id number]) Posture Evaluation Shaquille Postural Classification System Vertebral Compression Test 1 Elbow Flexion Test 1 Lumbar Protective Mechanism Left AP 1 Lumbar Protective Mechanism Right AP 1 Lumbar Protective Mechanism Left PA 1 Lumbar Protective Mechanism Right PA 1 Comments Posture Comments Pt had pain with LPM PA in both directions Sitting Posture: Pt has forward head posture, rounded shoulders, and his rib cage has an anterior tilt compared to his pelvis alignment. He sits shifted to the right in order to avoid pain. PT-OP-K Range of Motion Start: 04/23/19 08:13 Freq: Status: Active Protocol: Document 04/23/19 09:45 [facility] (Rec: 04/23/19 14:23 MT [id number]) Lumbar Spine Range of Motion Lumbar Spine Active Testing Position Standing Rotation Left 60 Rotation Right 47 ROM Limitations Soft Tissue Tightness,Pain Comments R SB: 15cm L SB: 13cm flex: 15cm ext: 7cm Hip Goniometric Range of Motion Hip Left Hip ROM WFL No Testing Position Supine Straight Leg Raise 75 Right Hip ROM WFL No Testing Position Supine Straight Leg Raise 80 PT-OP-L Special Tests Start: 04/23/19 08:13 Freq: Status: Active Protocol: Document 04/23/19 09:45 [facility] (Rec: 04/23/19 14:23 MT [id number]) Special Tests Lumbar Spine Special Tests Compression Test Results neg B Slump Test Results pos L Comments pt has increased pain with cervical flexion and thoracic slump B Andrea Test Results negative B Comments required towel to pull knee to chest Straight Leg Raise Test Results neg B PT-OP-M Strength Start: 04/23/19 08:13 Freq: Status: Active Protocol: Document 04/23/19 09:45 [facility] (Rec: 04/23/19 14:23 MT [id number]) Hip Strength Hip Manual Muscle Testing Left Flexion (L2) 3+ Fair+ Abduction 4- Good- External Rotation 3+ Fair+ Internal Rotation 3+ Fair+ Right Flexion (L2) 4 Good Abduction 4- Good- External Rotation 4 Good Internal Rotation 4 Good Knee Strength Knee Manual Muscle Testing Left Flexion (S2) 4- Good- Extension (L3) 4- Good- Right Flexion (S2) 4- Good- Extension (L3) 3+ Fair+ Comments B measured in seated Ankle/Foot Strength Ankle and Foot Manual Muscle Testing Left Dorsiflexion (L4) 4 Good Plantarflexion (S1) 4- Good- Right Dorsiflexion (L4) 4+ Good+ Plantarflexion (S1) 4+ Good+ Comments B measured in seated PT-OP-Q Treatments Start: 04/23/19 08:13 Freq: Status: Active Protocol: Document 04/28/19 09:04 [facility] (Rec: 04/28/19 10:04 [facility] [id number]) Therapeutic Exercises Supine Exercises hip flex Supine Exercise Name single isometric Side bilateral Reps/Minutes 15 sec SKTC Supine Exercise Name w/opposite leg ext Side bilateral Reps/Minutes 30 sec heel slide Supine Exercise Name w/Tabd Side bilateral Reps/Minutes 10 TA marches Side bilateral Reps/Minutes 10 Comments added to HEP LTR Side bilateral Reps/Minutes 8 Comments added to HEP pelvic tilt Reps/Minutes 10 Manual Therapy Treatment Soft Tissue Mobilization QL Body Location L Mobilization Type Rolling Intensity/Depth Moderate Body Position Sidelying Neuro Re-Education Treatment Other Activities PNF Comments 1. ant lizzy & post depression rhythmic initiation to COI 2. mass flex & ext concentrics then COI PT-OP-T Assessment and Plan Start: 04/23/19 08:13 Freq: Status: Active Protocol: Document 04/28/19 09:04 [facility] (Rec: 04/28/19 10:04 [facility] [id number]) Physical Therapy Assessment Goals pain Short Term Goal (STG) pt will be able to bed mobility using log roll technique without increase in pain greater than 2 points on VAS STG Duration 05/24/19 Concrete Technician Goal (LTG) pt will report being able to perform all ADL's and house work that he needs to do without increase in VAS greater than 2 points. LTG Duration 06/24/19 posture Short Term Goal (STG) pt will be able to demonstrate proper sitting and standing posture and will be able to implement corrections without PT cueing in order to improve pt awareness and daily sitting posture for improved activity tolerance in prolonged positions. STG Duration 05/24/19 Concrete Technician Goal (LTG) pt will achieve at least a 4/5 on VCT, EFT, and LPM in order to demonstrate improve postural stability and increase activtiy tolerance LTG Duration 06/24/19 strength Short Term Goal (STG) pt will be independent and compliant with HEP STG Duration 05/24/19 Mcc Goal (LTG) pt will increase B LE strength to at least 4+/5 in order to improve pt ability to participate in ADL's and functional mobility LTG Duration 06/24/19 Oswestry Mcc Goal (LTG) pt will improve Oswestry score to 19/100 in order to demonstrate improved ability to participate in ADL's LTG Duration 06/24/19 Assessment Summary Assessment Pt required min cueing w/ exercises with more cueing required for Tabd contraction to maintain stability during exercises. He had pain with ant elevation prior to STM but after STM pt had improved excusion of movement without pain. Improved ability to roll and no pain with rolling after training. Physical Therapy Plan Frequency and Duration Frequency of Treatment 2x/Week Duration of Treatment 2 months Plan of Care Start Date 04/23/19 Plan of Care End Date 06/24/19 Next Visit Focus/Plan Next Note Type Treatment Note Next Visit Plan manual therapy as needed., progress core, cont to work on rolling & progress to sit to stand work
--- NOTE | 2019-05-27 14:43 | PT.OPDS ---
Current Diagnoses Low back pain (04/28/19) Abnormal posture (04/28/19) Weakness (04/28/19) Visit Care Team Role Provider Type Dinah Asher PA-C Attending Provider Advanced Broadcast Operations Technician Primary Care Provider Specialty: Medical Address: [address] [place] [address], [address], [facility] Email: [email or web address] Visit Number Visit Number 3 Discharge Summary Protocol: Document 05/27/19 14:43 [facility] (Rec: 05/27/19 14:43 [facility] [id number]) Physical Therapy Plan Discharge Physical Therapy Discharge Reasons Patient Request Discharge Comments Pt changed to different PT location
== END 2019-05-29 13:14 ==
LOC: PHYS 09:00
PROVIDERS: PCP Physician Assistant; Visit Provider Physician Assistant
DX: M54.5 Low back pain (principal); R53.1 Weakness; R29.3 Abnormal posture
CPT/HCPCS: 97110; 97112; 97140; 97162

== ENCOUNTER → 2019-06-27 13:12 | Outpatient (CLI) | payer MEDICARE, OTHER, SELFPAY ==
[2018-10-16 08:14] VITALS: BMI 30.8
--- NOTE | 2019-06-27 15:03 | PM.TREADMILL ---
Cardiac Stress Test Report Referral & Results Date Patient Seen: 06/27/19 Requesting provider: Sylvester Nayak Indication: Hypertension Rest ECG: Unremarkable except for brief episodes of ventricular trigeminy Procedure Note: Today following both written and verbal informed consent, the patient was exercised according to a standard Julito protocol. The patient exercised for a total of 8 minutes 4 seconds achieving a maximum heart rate of 170. Patient's maximum systolic blood pressure was 186. This was an estimated 10.1 MET's. Patient did have brief runs of ventricular trigeminy throughout the monitoring period. In recovery he had rare ventricular couplets as well There are no ST-T segment changes Functional aerobic impairment rates-20% on the active scale or 20% better than average for his age Impression: No evidence of ischemia Ventricular dysrhythmia as above Excellent exercise capacity Please note: Actual ECG tracings can be found in the PACS system.
== END ==
PROVIDERS: PCP Physician Assistant; Referring Provider Internal Medicine Cardiovascular Disease; Visit Provider Internal Medicine Cardiovascular Disease
DX: I49.9 Cardiac arrhythmia, unspecified (principal); R00.2 Palpitations; I10 Essential (primary) hypertension
CPT/HCPCS: 93016; 93017; 93018

== ENCOUNTER → 2019-11-27 15:25 | Outpatient (CLI) | payer MEDICARE, OTHER, SELFPAY ==
[2018-10-16 08:14] VITALS: BMI 30.8
--- NOTE | 2019-11-27 15:29 | DI.RAD.S_ITS ---
PROCEDURE: XR ANKLE RT MIN 3V INDICATIONS: r foot pain TECHNIQUE: 3 views of the ankle were acquired. COMPARISON: [facility], , XR FOOT RT MIN 3V, 11/27/2019, 15:25. FINDINGS: Bones: There is a nondisplaced horizontally oriented fracture evident involving the distal fibula. No additional fractures are seen. No suspicious osseous lesions are evident. The alignment of the ankle mortise appears to be anatomic. Soft tissues: There may be a small to moderate-sized tibiotalar joint effusion. Moderate subcutaneous edema about the ankle is more prominent overlying the lateral malleolus. IMPRESSION: Nondisplaced lateral malleolar fracture. Dictated by: Rajesh Hernandez M.D. on 11/27/2019 at 15:04 Approved by: Rajesh Hernandez M.D. on 11/27/2019 at 15:06
--- NOTE | 2019-11-27 15:29 | DI.RAD.S_ITS ---
PROCEDURE: XR FOOT RT MIN 3V INDICATIONS: r foot pain TECHNIQUE: 3 views of the foot were acquired. COMPARISON: [facility], CR, XR ANKLE RT MIN 3V, 11/27/2019, 15:25. FINDINGS: Bones: No fractures or dislocations. (However, the patient has lateral malleolar fracture is not readily apparent). No suspicious bony lesions. Mild degenerative changes are noted involving the 1st metatarsophalangeal joint. Soft tissues: No tibiotalar joint effusion. The overlying soft tissues are unremarkable. IMPRESSION: No displaced fractures of the right foot. However, please see the report of the ankle for details regarding the lateral malleolus. Dictated by: Rajesh Hernandez M.D. on 11/27/2019 at 15:01 Approved by: Rajesh Hernandez M.D. on 11/27/2019 at 15:03
== END ==
PROVIDERS: Referring Provider Physician Assistant; Visit Provider Physician Assistant
DX: S82.64XA Nondisplaced fracture of lateral malleolus of right fibula, initial encounter for closed fracture (principal); M25.571 Pain in right ankle and joints of right foot; M79.671 Pain in right foot
CPT/HCPCS: 73610; 73630

== ENCOUNTER → 2019-12-26 09:33 | Outpatient (CLI) | payer MEDICARE, OTHER, SELFPAY ==
[2018-10-16 08:14] VITALS: BMI 30.8
[2019-12-26 11:08] LABS: Hemoglobin A1C% w Est Avg Glu 5.7 % (4.0-6.0)
[2019-12-26 11:25] LABS: Alanine Aminotransferase 28 IU/L (<50); Albumin 4.3 g/dL (3.5-5.0); Albumin Globulin Ratio 1.6 (1.0-2.8); Alkaline Phosphatase 51 U/L (38-126); Aspartate Aminotransferase 28 IU/L (17-59); BUN Creatinine Ratio 12.7 (6-22); Bilirubin Total 1.1 mg/dL (0.2-1.3); Blood Urea Nitrogen 13 mg/dL (9-20); Calcium 9.6 mg/dL (8.4-10.2); Carbon Dioxide 33 mmol/L (22-32); Chloride 99 mmol/L (98-107); Cholesterol 186 mg/dL (140-199); Estimated Glomerular Filt Rate > 60.0 mL/min (>60); Globulin 2.7 g/dL (1.7-4.1); Glucose 101 mg/dL (80-110); HDL Cholesterol 44 mg/dL (40-60); HEMOLYSIS < 15 (0-50); LDL Cholesterol Calculated 114 mg/dL (<100); Potassium 3.8 mmol/L (3.4-5.1); Sodium 139 mmol/L (137-145); Triglycerides 139 mg/dL (35-150)
[2019-12-26 11:46] LABS: Creatinine Urine Random 88.5 mg/dL
[2019-12-26 11:51] LABS: Microalbumi Creatinin Ratio Ur 6.7 ug/mg CR (<30); Microalbumin Urine Random < 0.6 mg/dL (0-1.6)
[2019-12-26 11:57] LABS: Prostate Specific Antigen < 0.064 ng/mL (0.10-4.00)
== END ==
PROVIDERS: PCP Nurse Practitioner; Referring Provider Nurse Practitioner; Visit Provider Nurse Practitioner
DX: E78.5 Hyperlipidemia, unspecified (principal); I10 Essential (primary) hypertension; Z79.899 Other long term (current) drug therapy; Z12.5 Encounter for screening for malignant neoplasm of prostate
CPT/HCPCS: 36415; 80053; 80061; 82043; 82570; 83036; 84153; G0103

== ENCOUNTER → 2019-12-29 08:30 | Outpatient (CLI) | payer MEDICARE, OTHER, SELFPAY ==
[2018-10-16 08:14] VITALS: BMI 30.8
[2019-12-30 18:08] LABS: Fecal Immunochemical Test Negative (Negative)
== END ==
PROVIDERS: PCP Nurse Practitioner; Referring Provider Nurse Practitioner; Visit Provider Nurse Practitioner
DX: Z12.11 Encounter for screening for malignant neoplasm of colon (principal)
CPT/HCPCS: 82274

== ENCOUNTER → 2021-08-15 09:42 | Outpatient (CLI) | payer MEDICARE, OTHER, SELFPAY ==
[2018-10-16 08:14] VITALS: BMI 30.8
[2021-08-15 11:03] LABS: Alanine Aminotransferase 32 IU/L (<50); Albumin 4.3 g/dL (3.5-5.0); Albumin Globulin Ratio 1.5 (1.0-2.8); Alkaline Phosphatase 44 U/L (38-126); Aspartate Aminotransferase 31 IU/L (17-59); BUN Creatinine Ratio 16.7 (6-22); Bilirubin Total 1.1 mg/dL (0.2-1.3); Blood Urea Nitrogen 19 mg/dL (9-20); Carbon Dioxide 32 mmol/L (22-32); Chloride 101 mmol/L (98-107); Cholesterol 176 mg/dL (140-199); Estimated Glomerular Filt Rate > 60.0 mL/min (>60); Globulin 2.8 g/dL (1.7-4.1); Glucose 108 mg/dL (80-110); HDL Cholesterol 52 mg/dL (40-60); HEMOLYSIS < 15 (0-50); LDL Cholesterol Calculated 95 mg/dL (<100); Potassium 3.1 mmol/L (3.4-5.1); Sodium 140 mmol/L (137-145); Total Protein 7.1 g/dL (6.3-8.2); Triglycerides 145 mg/dL (35-150)
[2021-08-15 11:33] LABS: Prostate Specific Antigen < 0.064 ng/mL (0.10-4.00)
[2021-08-15 11:41] LABS: Free T3, Triiodothyronine Free 3.24 pg/mL (2.77-5.27); Free T4, Direct Thyroxine 1.06 ng/dL (0.78-2.19)
[2021-08-15 11:54] LABS: Thyroid Stimulating Hormone 1.86 uIU/mL (0.47-4.68)
[2021-08-15 15:48] LABS: Creatinine Urine Random 193.7 mg/dL
[2021-08-15 15:53] LABS: Microalbumi Creatinin Ratio Ur 16.5 ug/mg CR (<30); Microalbumin Urine Random 3.2 mg/dL (0-1.6)
== END ==
PROVIDERS: PCP Nurse Practitioner; Referring Provider Nurse Practitioner; Visit Provider Nurse Practitioner
DX: E78.5 Hyperlipidemia, unspecified (principal); Z79.899 Other long term (current) drug therapy; I10 Essential (primary) hypertension; Z12.5 Encounter for screening for malignant neoplasm of prostate
CPT/HCPCS: 36415; 80053; 80061; 82043; 82570; 84153; 84439; 84443; 84481; G0103

== ENCOUNTER → 2021-10-18 11:09 | Outpatient (CLI) | payer MEDICARE, OTHER, SELFPAY ==
[2018-10-16 08:14] VITALS: BMI 30.8
[2021-10-18 13:07] LABS: BUN Creatinine Ratio 16.7 (6-22); Blood Urea Nitrogen 17 mg/dL (9-20); Calcium 9.2 mg/dL (8.4-10.2); Carbon Dioxide 31 mmol/L (22-32); Chloride 100 mmol/L (98-107); Estimated Glomerular Filt Rate > 60 mL/min (>60); Glucose 101 mg/dL (80-110); HEMOLYSIS < 15 (0-50); Magnesium 1.9 mg/dL (1.6-2.3); Potassium 3.1 mmol/L (3.4-5.1); Sodium 137 mmol/L (137-145)
== END ==
PROVIDERS: PCP Nurse Practitioner; Referring Provider Nurse Practitioner; Visit Provider Nurse Practitioner
DX: E87.6 Hypokalemia (principal); I10 Essential (primary) hypertension; T50.2X5A Adverse effect of carbonic-anhydrase inhibitors, benzothiadiazides and other diuretics, initial encounter
CPT/HCPCS: 36415; 80048; 83735

== ENCOUNTER → 2021-10-24 07:52 | Outpatient (CLI) | payer MEDICARE, OTHER, SELFPAY ==
[2018-10-16 08:14] VITALS: BMI 30.8
[2021-10-24 09:32] LABS: BUN Creatinine Ratio 16.1 (6-22); Blood Urea Nitrogen 18 mg/dL (9-20); Calcium 9.4 mg/dL (8.4-10.2); Carbon Dioxide 32 mmol/L (22-32); Chloride 100 mmol/L (98-107); Estimated Glomerular Filt Rate > 60 mL/min (>60); Glucose 113 mg/dL (80-110); HEMOLYSIS < 15 (0-50); Magnesium 1.9 mg/dL (1.6-2.3); Potassium 3.3 mmol/L (3.4-5.1); Sodium 140 mmol/L (137-145)
== END ==
PROVIDERS: PCP Nurse Practitioner; Referring Provider Nurse Practitioner; Visit Provider Nurse Practitioner
DX: E87.6 Hypokalemia (principal)
CPT/HCPCS: 36415; 80048; 83735

== ENCOUNTER → 2022-04-07 11:03 | Outpatient (CLI) | payer MEDICARE, OTHER, SELFPAY ==
[2018-10-16 08:14] VITALS: BMI 30.8
[2022-04-07 12:24] LABS: BUN Creatinine Ratio 18.2 (6-22); Blood Urea Nitrogen 16 mg/dL (9-20); Calcium 9.4 mg/dL (8.4-10.2); Carbon Dioxide 31 mmol/L (22-32); Chloride 99 mmol/L (98-107); Estimated Glomerular Filt Rate > 60 mL/min (>60); Glucose 92 mg/dL (80-110); HEMOLYSIS 20 (0-50); Magnesium 1.9 mg/dL (1.6-2.3); Potassium 3.8 mmol/L (3.4-5.1); Sodium 137 mmol/L (137-145)
[2022-04-07 13:04] LABS: Hep C Virus Ab w/Reflex Quant NEGATIVE s/c (NEGATIVE)
[2022-04-07 15:01] LABS: Hemoglobin A1C% w Est Avg Glu 5.8 % (4.0-6.0)
== END ==
PROVIDERS: PCP Nurse Practitioner; Referring Provider Nurse Practitioner; Visit Provider Nurse Practitioner
DX: R73.01 Impaired fasting glucose (principal); E87.6 Hypokalemia; I10 Essential (primary) hypertension; T50.905A Adverse effect of unspecified drugs, medicaments and biological substances, initial encounter; T50.2X5A Adverse effect of carbonic-anhydrase inhibitors, benzothiadiazides and other diuretics, initial encounter; Z11.59 Encounter for screening for other viral diseases
CPT/HCPCS: 36415; 80048; 83036; 83735; 86803

== ENCOUNTER → 2022-06-26 08:01 | Outpatient (CLI) | payer MEDICARE, OTHER, SELFPAY ==
[2018-10-16 08:14] VITALS: BMI 30.8
[2022-06-26 10:41] LABS: Blood Urea Nitrogen 12 mg/dL (9-20); Calcium 8.8 mg/dL (8.4-10.2); Carbon Dioxide 34 mmol/L (22-32); Chloride 99 mmol/L (98-107); Estimated Glomerular Filt Rate > 60 mL/min (>60); Glucose 106 mg/dL (80-110); HEMOLYSIS < 15 (0-50); Potassium 3.1 mmol/L (3.4-5.1); Sodium 138 mmol/L (137-145)
== END ==
PROVIDERS: PCP Nurse Practitioner; Referring Provider Podiatrist; Visit Provider Podiatrist
DX: Z01.818 Encounter for other preprocedural examination (principal); Z01.812 Encounter for preprocedural laboratory examination
CPT/HCPCS: 36415; 80048; 93005

== ENCOUNTER → 2022-07-17 14:25 | Outpatient (CLI) | payer MEDICARE, OTHER, SELFPAY ==
[2018-10-16 08:14] VITALS: BMI 30.8
== END ==
PROVIDERS: PCP Nurse Practitioner; Visit Provider Registered Nurse
DX: R30.0 Dysuria (principal)
CPT/HCPCS: 87077; 87086; 87186

== ENCOUNTER → 2022-08-25 13:29 | Outpatient (CLI) | payer MEDICARE, OTHER, SELFPAY ==
[2018-10-16 08:14] VITALS: BMI 30.8
[2022-08-25 14:47] LABS: Alanine Aminotransferase 33 IU/L (<50); Albumin 4.2 g/dL (3.5-5.0); Albumin Globulin Ratio 1.4 (1.0-2.8); Alkaline Phosphatase 60 U/L (38-126); Aspartate Aminotransferase 33 IU/L (17-59); BUN Creatinine Ratio 14.9 (6-22); Bilirubin Total 0.9 mg/dL (0.2-1.3); Blood Urea Nitrogen 14 mg/dL (9-20); Calcium 9.3 mg/dL (8.4-10.2); Carbon Dioxide 34 mmol/L (22-32); Chloride 98 mmol/L (98-107); Cholesterol 169 mg/dL (140-199); Estimated Glomerular Filt Rate > 60 mL/min (>60); Globulin 2.9 g/dL (1.7-4.1); Glucose 102 mg/dL (80-110); HDL Cholesterol 57 mg/dL (40-60); HEMOLYSIS < 15 (0-50); LDL Cholesterol Calculated 86 mg/dL (<100); Magnesium 1.8 mg/dL (1.6-2.3); Potassium 3.2 mmol/L (3.4-5.1); Sodium 137 mmol/L (137-145); Total Protein 7.1 g/dL (6.3-8.2); Triglycerides 132 mg/dL (35-150)
[2022-08-25 15:04] LABS: Free T3, Triiodothyronine Free 3.96 pg/mL (2.77-5.27); Free T4, Direct Thyroxine 1.17 ng/dL (0.78-2.19)
[2022-08-25 15:17] LABS: Prostate Specific Antigen Scrn < 0.064 ng/mL (0.1-4.0)
[2022-08-25 15:18] LABS: Thyroid Stimulating Hormone 1.19 uIU/mL (0.47-4.68)
[2022-08-25 17:57] LABS: Creatinine Urine Random 269.7 mg/dL
[2022-08-25 18:01] LABS: Microalbumi Creatinin Ratio Ur 5.5 ug/mg CR (<30); Microalbumin Urine Random 1.5 mg/dL (0-1.6)
== END ==
PROVIDERS: PCP Nurse Practitioner; Referring Provider Nurse Practitioner; Visit Provider Nurse Practitioner
DX: E87.6 Hypokalemia (principal); E78.5 Hyperlipidemia, unspecified; Z12.5 Encounter for screening for malignant neoplasm of prostate; I10 Essential (primary) hypertension; R73.01 Impaired fasting glucose; T50.905A Adverse effect of unspecified drugs, medicaments and biological substances, initial encounter; Z79.899 Other long term (current) drug therapy; Z85.46 Personal history of malignant neoplasm of prostate
CPT/HCPCS: 36415; 80053; 80061; 82043; 82570; 83735; 84439; 84443; 84481; G0103

== ENCOUNTER → 2022-10-25 18:33 | Outpatient (CLI) | payer MEDICARE, OTHER, SELFPAY ==
[2018-10-16 08:14] VITALS: BMI 30.8
== END ==
PROVIDERS: PCP Nurse Practitioner; Visit Provider Student in an Organized Health Care Education/Training Program
DX: N39.0 Urinary tract infection, site not specified (principal)
CPT/HCPCS: 87086

== ENCOUNTER → 2023-05-09 16:07 | Outpatient (CLI) | payer MEDICARE, OTHER, SELFPAY ==
[2018-10-16 08:14] VITALS: BMI 30.8
--- NOTE | 2023-05-09 16:10 | DI.RAD.S_ITS ---
PROCEDURE: XR LUMBAR SPINE 2-3V INDICATIONS: chronic pain x 2 years, more left side TECHNIQUE: 3 views of the lumbar spine were acquired. COMPARISON: [facility], [place], XR LUMBAR SPINE 2-3V, 04/02/2019, 15:06. [facility], [place], L-SPINE 2-3 VIEWS, 08/12/2015, 10:01. FINDINGS: Bones: Vertebral body heights are well maintained. No traumatic subluxation. There are mild degenerative changes. No significant progression by radiography. Soft tissues: Vascular calcifications. Possible calcification projecting over left mid abdomen. Pelvic clips. IMPRESSION: Mild degenerative changes. No acute radiographic abnormality. If there is high concern for further derangement, consider MRI evaluation. Dictated by: Leonel Carrillo M.D. on 05/09/2023 at 17:28 Approved by: Leonel Carrillo M.D. on 05/09/2023 at 17:29
== END ==
PROVIDERS: PCP Nurse Practitioner; Referring Provider Physician Assistant; Visit Provider Physician Assistant
DX: M47.816 Spondylosis without myelopathy or radiculopathy, lumbar region (principal); M54.9 Dorsalgia, unspecified; G89.29 Other chronic pain
CPT/HCPCS: 72100

== ENCOUNTER → 2023-05-31 11:26 | Outpatient (CLI) | payer MEDICARE, OTHER, SELFPAY ==
[2018-10-16 08:14] VITALS: BMI 30.8
--- NOTE | 2023-05-31 11:27 | DI.CT.S_ITS ---
PROCEDURE: CT ABDOMEN PELVIS W CON INDICATIONS: recurrent right inguinal herina TECHNIQUE: After the administration of intravenous contrast, axial sections acquired from the lung bases to the pubic symphysis. Coronal and sagittal reformats were performed. For radiation dose reduction, the following was used: automated exposure control, adjustment of mA and/or kV according to patient size. COMPARISON: [facility], CT, CT ABDOMEN PELVIS W CON, 01/03/2019, 22:16. FINDINGS: Image quality: Diagnostic. Lower Chest: No significant findings. ABDOMEN: Liver: No solid mass. Gallbladder: No radiopaque stone seen Biliary ducts: No biliary dilation. Pancreas: No ductal dilation. Spleen: Size is within normal limits. Adrenal Glands: No adrenal nodules. Kidneys and Ureters: No hydronephrosis. No solid mass. No complex renal cystic lesion which requires follow up. Stomach and Bowel: Normal colonic caliber, without significant wall thickening. Diverticulosis without evidence of diverticulitis. No secondary signs of appendicitis seen Peritoneum: No abnormal intraperitoneal fluid. No free air. Ventral Wall: Postop changes of the anterior abdominal wall with no anterior abdominal wall hernia seen. Fascia of the inner peritoneum appears discontinuous in this area. A slightly more prominent right inguinal hernia is now seen containing a small portion of colon and bladder without evidence of strangulation or obstruction. Abdominal Nodes: No retroperitoneal or mesenteric adenopathy by size criteria. Vessels: Aorta and inferior vena cava are normal in size. PELVIS: Pelvic Organs: Unremarkable. Bladder: Unremarkable. Pelvic Nodes: No enlarged lymph nodes. Bones: No aggressive osseous abnormality. Schmorl's node of the inferior endplate of L2. IMPRESSION: 1. Slightly more prominent right inguinal hernia, now containing loop of colon and small portion of the bladder without evidence of strangulation or obstruction. 2. Previously identified anterior abdominal wall hernia is no longer present. Adjacent surgical changes are noted. Dictated by: Rufus Shultz M.D. on 06/01/2023 at 8:51 Approved by: Rufus Shultz M.D. on 06/01/2023 at 9:06
[2023-05-31 11:55] LABS: Estimated Glomerular Filt Rate > 60 mL/min (>60)
== END ==
LOC: CT 11:27
PROVIDERS: PCP Nurse Practitioner; Referring Provider Surgery; Visit Provider Surgery
DX: K40.91 Unilateral inguinal hernia, without obstruction or gangrene, recurrent; K57.90 Diverticulosis of intestine, part unspecified, without perforation or abscess without bleeding
CPT/HCPCS: 36415; 74177; 82565; Q9967

== ENCOUNTER 2023-06-12 06:42 | Day surgery (SDC) | payer MEDICARE, OTHER, SELFPAY ==
[2018-10-16 08:14] VITALS: BMI 30.8
[2023-06-06 08:29] VITALS: BMI 30.1
[2023-06-12] MEDS: LACTATED RINGERS 1,000 ML 100 ML IV (07:32)
[2023-06-12 07:36] VITALS: BP 158/93; PULSE 64; RESP 16; TEMP 36.1; O2SAT 99; BMI 30.1
--- NOTE | 2023-06-12 07:53 | PM.PREOP ---
Pre-operative Note COVID-19 COVID-19 status: Not tested Interval Note History & Physical reviewed/Exam performed by Physician: Yes Changes to H&P: No ASA Class (for procedural sedation): II
[2023-06-12] MEDS: CEFAZOLIN 2 GM/100 ML PREMIX 100 ML IV (08:09)
--- NOTE | 2023-06-12 08:32 | SUR.OPER ---
Supine on pink padded OR bed, head on pillow, arms padded and tucked at sides, legs uncrossed, safety belt at thigh, tape over blanket over lower legs .
[2023-06-12] MEDS: BUPIVACAINE 0.5% (PF) 30 ML, EPINEPHrine 0.15 MG INJ (08:50)
[2023-06-12] MEDS: ACETAMINOPHEN IV 1,000 MG/100 ML VIAL 400 MG IV (09:09)
--- NOTE | 2023-06-12 11:00 | P.OP_ITS ---
Operative Date/Time/Diagnoses Date of procedure: 06/12/23 Time of procedure: 11:00 Pre-op diagnosis: Recurrent right groin hernia Post-op diagnosis: same Procedure & Clinicians Procedure: Open recurrent right inguinal hernia repair with mesh Same procedure as scheduled: No (Laparoscopic repair was aborted due to prior ventral hernia repair) Surgeon: Mian Pope Anesthesia Type: General Operative Notes Procedure in detail: Preoperative antibiotic was administered. The patient was brought to the operating room and placed on the table in supine position general anesthesia was induced. The right abdomen was prepped and draped in the normal fashion and a time-out was performed. Initially the laparoscopic approach was attempted. A 1.5 cm transverse incision was created where the umbilicus used to be. Dissection was carried down to the anterior sheath which was scored with cautery. The anterior sheath was grasped with a Manny clamp to elevate the fascia. A Peon clamp was inserted and was felt to peers the peritoneum. However after the Romano port was placed and low- flow initiated camera was inserted but was not in the peritoneal cavity. The posterior sheath was grasped but could not be pulled up enough to incise, in part because of the thickness of the subcutaneous layer. We therefore attempted to enter the abdomen about prison between the initial incision and the pubis. Dissection was carried down to the anterior sheath which was scored transversely cautery. Again, an attempt was made appears to peritoneum with a Peon clamp but it did not puncture, likely because of significant thickening and scar tissue of the peritoneum. A finger was inserted but no opening could palpated into the peritoneal cavity. Therefore the laparoscopic attempt was aborted and we converted to an open inguinal hernia repair. Roughly 10 mL of local anesthetic were injected into the skin and subcutaneous adipose tissue over the right groin. A 6 cm incision was made through the old groin incision scar. Dissection was carried down through the subcutaneous adipose tissue. The hernia was encountered before the old external oblique fascia could be identified. Dissection was carried out around the hernia to free it from surrounding tissue. Eventually the right cord was exposed and isolated. The cord was encircled with a Leland drain. The external oblique fascia could now be identified and was opened about 2 additional cm and a lateral direction. Dissection was difficult due to obliteration of the tissue planes but eventually the inguinal ligament and conjoint tendon were identified. Further dissection of the inguinal canal demonstrated a direct hernia. No femoral hernia was palpable. The edge of the old mesh could be palpated deep and lateral suggesting that it had detached from its fixation to the pubis. We then placed a polypropylene mesh against the floor of the inguinal canal. The mesh was secured with multiple interrupted 3-0 Prolene sutures to the pubic tubercle and shelving edge of the inguinal ligament as well as to the conjoint tendon medially. We overlapped the tails to recreate an internal ring and secured the medial tail to the inguinal ligament with additional sutures. We injected some more local into the fatty tissue in the inguinal canal and cord. Finally, we removed the Percival drain and closed the external oblique fascia with a running 3-0 Vicryl suture. All skin incisions were closed with int errupted 3-0 Vicryl dermal sutures and a running 4 Monocryl subcuticular stitch. EBL 25 mL The patient was awakened and brought to recovery room. Post-operative Condition: stable Disposition: PACU
[2023-06-12 11:03] VITALS: BP 147/86; PULSE 91; RESP 18; TEMP 36.5; O2SAT 93
[2023-06-12 11:09] VITALS: BP 135/87; PULSE 92; RESP 18; O2SAT 97
[2023-06-12 11:13] VITALS: BP 128/84; PULSE 93; RESP 16; TEMP 36.8; O2SAT 94
[2023-06-12 11:22] VITALS: BP 130/82; PULSE 92; RESP 16; O2SAT 94
== END 2023-06-12 12:18 | disposition home or self-care (01) ==
PROVIDERS: PCP Nurse Practitioner; Referring Provider Surgery; Visit Provider Surgery
PROC: 0YQ54ZZ Repair Right Inguinal Region, Percutaneous Endoscopic Approach (ICD-10-PCS; CPT 49520; principal; 2023-06-12 07:45)
DX: K40.91 Unilateral inguinal hernia, without obstruction or gangrene, recurrent (principal); I10 Essential (primary) hypertension; E78.5 Hyperlipidemia, unspecified; Z85.46 Personal history of malignant neoplasm of prostate
CPT/HCPCS: 49520; J0136; J0171; J0690; J1100; J1885; J2250; J2405; J2704; J3010

== ENCOUNTER 2023-06-20 09:52 | Outpatient (CLI) | payer MEDICARE, OTHER, SELFPAY ==
[2018-10-16 08:14] VITALS: BMI 30.8
[2023-06-20] VITALS (9 sets, daily range): BP systolic 132–160; BP diastolic 70–84; PULSE 55–70; RESP 12–18; TEMP 36.4; O2SAT 16–100
--- NOTE | 2023-06-20 10:30 | DI.RAD.S_ITS ---
PROCEDURE: PAIN L/S FACET INJ/BLK 1ST DENISSE INDICATIONS: SPONDYLOSIS COMPARISON: None. FINDINGS: Fluoroscopic spot filming was performed to verify placement of spinal needles at the bilateral L3, L4, and L5 levels, as labeled on the films. Appropriate locations of the needle tips were confirmed by injection of iodinated contrast. IMPRESSION: Intraprocedural examination demonstrates appropriate needle positioning. Approved by: Mayco Stephen M.D. on 06/20/2023 at 17:30
[2023-06-20] MEDS: MIDAZOLAM 2 MG/2 ML VIAL 1 MG IV (10:36)
[2023-06-20] MEDS: iopamidoL 15 ML VIAL 3 ML INJ (10:42)
[2023-06-20] MEDS: BUPIVACAINE 0.5% (PF) 10 ML VIAL 5 ML INJ (10:43)
--- NOTE | 2023-06-20 11:31 | P.PCN_ITS ---
Date/Time/Diagnoses Date of procedure: 06/20/23 Time of procedure: 10:30 Procedure Notes Physician: João Charles Total Fluoroscopy time (seconds): 24 Total sedation minutes: 20 Procedure in detail & Post-procedure care: Bilateral L3, 4, 5 Lumbar Medial Branch Blocks Indications: Prem is presenting for treatment of lumbar spondylosis with low back pain. Preoperative diagnosis: Lumbar spondylosis Postoperative diagnosis: Same Pre-procedure History: Patient demonstrates today moderate to severe non- radicular back pain without neurologic deficit aggravated by hyperextension yes Back pain greater than leg pain? yes Patient today has tenderness over the suspected joint(s) yes History of post-traumatic injury? no Hypertrophic arthropathy yes Back pain associated with suspected motion segment instability, hypermobility or pseudoarthrosis no Pre-testing pain score (VAS): 5/10 Focused Examination: Ax3 Mood and affect are normal Vital Signs: VSS ASA: 2 Consent: Following review of allergies and potential side effects/complications, including, but not necessarily limited to, infection, allergic reaction, local tissue breakdown, stroke, temporary or permanent nerve injury, paralysis, and possible , the patient indicated that they understood and agreed to proceed.? An informed consent document was signed by the patient, witnessed by a nurse and placed in the patient's chart.? Additionally, other treatment options including medications and physical therapy were reviewed with the patient. All questions were answered. Site was then marked. Anesthesia: After review of previous anesthetic history and IV conscious sedation, the patient was deemed safe to proceed with today's procedure with IV conscious sedation. IV sedation was accomplished with midazolam 1 mg administered by the RN after order by Dr. Charles. Sedation was titrated to patient comfort during the course of the procedure. Patient remained responsive to all verbal commands. Position: Prone Monitoring: NIBP, Pulse oximetry, 3 lead EKG Needle used: 22 ga 3.5 inch spinal needle Contrast: Isovue 300M Injectate: 0.5% bupivacaine 1 mL per site Procedure: The patient was brought into the procedure room and positioned into the prone position. Skin was prepped with a Chloraprep solution, allowed to air dry, and then draped in sterile fashion.? The right L4-5 and L5-S1 facet joints were visually identified with fluoroscopy. Lidocaine 1% was used to anesthetize the skin over each target destination with a 25ga needle. A 22 ga, 3.5 inch spinal needle was advanced to the location of the medial branch at the junction of the superior articular process and the transverse process at L4,5 and the base of the SAP of the sacrum using intermittent fluoroscopy in the AP view. Isovue 300M contrast 0.2ml was injected at each level outlining the medial borders for each level and the base of the SAP of the sacrum in the AP and lateral views. There was no evidence of vascular or intrathecal uptake. The above injectate was slowly injected at each target destination. The left L4-5 and L5-S1 facet joints were visually identified with fluoroscopy. Lidocaine 1% was used to anesthetize the skin over each target destination with a 25ga needle. A 22 ga, 3.5 inch spinal needle was advanced to the location of the medial branch at the junction of the superior articular process and the transverse process at L4,5 and the base of the SAP of the sacrum using intermittent fluoroscopy in the AP view. Isovue 300M contrast 0.2ml was injected at each level outlining the medial borders for each level and the base of the SAP of the sacrum in the AP and lateral views. There was no evidence of vascular or intrathecal uptake. The above injectate was slowly injected at each target destination. At the end of the procedure the needles were withdrawn and Band- Aids were applied for a dressing. Post Procedure: Patient was taken to the recovery and monitored. The patient was provided a Pain Log to continue to record the patient's response to the target- specific procedure prior to the patient's follow-up visit with the referring physician. Patient was stable upon discharge. Detailed post procedure instructions were provided. Patient was asked to call in the event of worsening pain, fever, weakness, numbness or bladder or bowel incontinence. Postoperatively, today patient demonstrates the following changes with hyperextension and with tenderness over the suspected joint(s). Provacative testing using the Barnard's facet loading test Right side Left side Directly before the block ?VAS (0-10) = 5/10 VAS (0-10) = 5/10 5 minutes after the block VAS (0-10) = 0/10 VAS (0-10) = 0/10 Percentage relief obtained with this diagnostic block 100% 100% Any improved physical functioning directly after the blocks? Range of motion Based on the medial branches blocked today, if the patient meets insurance criteria for radiofrequency, the treatment should result in the denervation of the bilateral L4-5 and L5-S1 facet joint nerves. We would expect to denervate a total of 4 facets during the radiofrequency ablation.
== END 2023-06-20 11:06 | disposition home or self-care (01) ==
PROVIDERS: PCP Nurse Practitioner; Referring Provider Anesthesiology; Visit Provider Anesthesiology
DX: M47.816 Spondylosis without myelopathy or radiculopathy, lumbar region (principal)
CPT/HCPCS: 64493; 64494; 99152; J2250

== ENCOUNTER → 2023-07-15 10:55 | Outpatient (CLI) | payer MEDICARE, OTHER, SELFPAY ==
[2018-10-16 08:14] VITALS: BMI 30.8
== END ==
PROVIDERS: PCP Nurse Practitioner; Visit Provider Physician Assistant Medical
DX: R10.9 Unspecified abdominal pain (principal)
CPT/HCPCS: 87077; 87086; 87186

== ENCOUNTER 2023-08-29 07:26 | Outpatient (CLI) | payer MEDICARE, OTHER, SELFPAY ==
[2018-10-16 08:14] VITALS: BMI 30.8
[2023-08-29] VITALS (8 sets, daily range): BP systolic 143–166; BP diastolic 71–89; PULSE 55–64; RESP 12–18; TEMP 36.2; O2SAT 97–100
--- NOTE | 2023-08-29 07:28 | DI.RAD.S_ITS ---
PROCEDURE: PAIN L/S FACET INJ/BLK 1ST DENISSE INDICATIONS: SPONDYLOSIS COMPARISON: [facility], , PAIN L/S FACET INJ/BLK 1ST DENISSE, 06/20/2023, 11:42. FINDINGS: Fluoroscopic spot filming was performed to verify placement of spinal needles at the bilateral L3, L4, L5 level(s), as labeled on the films. Appropriate location(s) of the needle tip(s) was confirmed by injection of iodinated contrast. IMPRESSION: Intraoperative guidance provided. Dictated by: Alejandro Weeks M.D. on 08/29/2023 at 11:30 Approved by: Alejandro Weeks M.D. on 08/29/2023 at 11:30
[2023-08-29] MEDS: MIDAZOLAM 2 MG/2 ML VIAL 1 MG IV (08:05)
[2023-08-29] MEDS: LIDOCAINE 2% INJ MDV 20ML 5 ML INJ (08:11)
[2023-08-29] MEDS: iopamidoL 15 ML VIAL 3 ML INJ (08:11)
--- NOTE | 2023-08-29 12:45 | P.PCN_ITS ---
Date/Time/Diagnoses Date of procedure: 08/29/23 Time of procedure: 08:00 Procedure Notes Physician: João Charles Total Fluoroscopy time (seconds): 24 Total sedation minutes: 14 Procedure in detail & Post-procedure care: Bilateral L3, 4, 5 Lumbar Medial Branch Blocks Indications: Patient is presenting for treatment of lumbar spondylosis with low back pain. Preoperative diagnosis: Lumbar spondylosis Postoperative diagnosis: Same Pre-procedure History: Patient demonstrates today moderate to severe non- radicular back pain without neurologic deficit aggravated by hyperextension yes Back pain greater than leg pain? yes Patient today has tenderness over the suspected joint(s) yes History of post-traumatic injury? no Hypertrophic arthropathy yes Back pain associated with suspected motion segment instability, hypermobility or pseudoarthrosis no Focused Examination: Ax3 Mood and affect are normal Vital Signs: VSS ASA: 2 Consent: Following review of allergies and potential side effects/complications, including, but not necessarily limited to, infection, allergic reaction, local tissue breakdown, stroke, temporary or permanent nerve injury, paralysis, and possible , the patient indicated that they understood and agreed to proceed.? An informed consent document was signed by the patient, witnessed by a nurse and placed in the patient's chart.? Additionally, other treatment options including medications and physical therapy were reviewed with the patient. All questions were answered. Site was then marked. Anesthesia: After review of previous anesthetic history and IV conscious sedation, the patient was deemed safe to proceed with today's procedure with IV conscious sedation. IV sedation was accomplished with midazolam 1 mg administered by the RN after order by Dr. Charles. Sedation was titrated to patient comfort during the course of the procedure. Patient remained responsive to all verbal commands. Position: Prone Monitoring: NIBP, Pulse oximetry, 3 lead EKG Needle used: 22 ga 3.5 inch spinal needle Contrast: Isovue 300M Injectate: 2% lidocaine 1 mL per site Procedure: The patient was brought into the procedure room and positioned into the prone position. Skin was prepped with a Chloraprep solution, allowed to air dry, and then draped in sterile fashion.? The right L4-5 and L5-S1 facet joints were visually identified with fluoroscopy. Lidocaine 1% was used to anesthetize the skin over each target destination with a 25ga needle. A 22 ga, 3.5 inch spinal needle was advanced to the location of the medial branch at the junction of the superior articular process and the transverse process at L4,5 and the base of the SAP of the sacrum using intermittent fluoroscopy in the AP view. Isovue 300M contrast 0.2ml was injected at each level outlining the medial borders for each level and the base of the SAP of the sacrum in the AP and lateral views. There was no evidence of vascular or intrathecal uptake. The above injectate was slowly injected at each target destination. The left L4-5 and L5-S1 facet joints were visually identified with fluoroscopy. Lidocaine 1% was used to anesthetize the skin over each target destination with a 25ga needle. A 22 ga, 3.5 inch spinal needle was advanced to the location of the medial branch at the junction of the superior articular process and the transverse process at L4,5 and the base of the SAP of the sacrum using intermittent fluoroscopy in the AP view. Isovue 300M contrast 0.2ml was injected at each level outlining the medial borders for each level and the base of the SAP of the sacrum in the AP and lateral views. There was no evidence of vascular or intrathecal uptake. The above injectate was slowly injected at each target destination. At the end of the procedure the needles were withdrawn and Band- Aids were applied for a dressing. Post Procedure: Patient was taken to the recovery and monitored. The patient was provided a Pain Log to continue to record the patient's response to the target- specific procedure prior to the patient's follow-up visit with the referring physician. Patient was stable upon discharge. Detailed post procedure instructions were provided. Patient was asked to call in the event of worsening pain, fever, weakness, numbness or bladder or bowel incontinence. Based on the medial branches blocked today, if the patient meets insurance criteria for radiofrequency, the treatment should result in the denervation of the bilateral L4-5 and L5-S1 facet joint nerves. We would expect to denervate a total of 4 facets during the radiofrequency ablation.
== END 2023-08-29 08:40 | disposition home or self-care (01) ==
LOC: RAD 07:26
PROVIDERS: PCP Nurse Practitioner; Referring Provider Anesthesiology; Visit Provider Anesthesiology
DX: M47.816 Spondylosis without myelopathy or radiculopathy, lumbar region (principal)
CPT/HCPCS: 64493; 64494; 99152; J2250

== ENCOUNTER → 2023-10-26 07:47 | Outpatient (CLI) | payer MEDICARE, OTHER, SELFPAY ==
[2018-10-16 08:14] VITALS: BMI 30.8
[2023-10-26 09:25] LABS: Alanine Aminotransferase 31 IU/L (<50); Albumin 3.9 g/dL (3.5-5.0); Albumin Globulin Ratio 1.5 (1.0-2.8); Alkaline Phosphatase 55 U/L (38-126); Aspartate Aminotransferase 30 IU/L (17-59); BUN Creatinine Ratio 17.6 (6-22); Bilirubin Total 1.4 mg/dL (0.2-1.3); Blood Urea Nitrogen 16 mg/dL (9-20); Calcium 9.5 mg/dL (8.4-10.2); Carbon Dioxide 32 mmol/L (22-32); Chloride 104 mmol/L (98-107); Cholesterol 179 mg/dL (140-199); Estimated Glomerular Filt Rate > 60 mL/min (>60); Globulin 2.6 g/dL (1.7-4.1); Glucose 110 mg/dL (80-110); HDL Cholesterol 60 mg/dL (40-60); HEMOLYSIS < 15 (0-50); LDL Cholesterol Calculated 92 mg/dL (<100); Potassium 3.7 mmol/L (3.4-5.1); Sodium 138 mmol/L (137-145); Total Protein 6.5 g/dL (6.3-8.2); Triglycerides 135 mg/dL (35-150)
[2023-10-26 09:35] LABS: Free T3, Triiodothyronine Free 3.21 pg/mL (2.77-5.27); Free T4, Direct Thyroxine 0.97 ng/dL (0.78-2.19)
[2023-10-26 09:48] LABS: Thyroid Stimulating Hormone 1.77 uIU/mL (0.47-4.68)
[2023-10-26 16:49] LABS: Microalbumin Urine Random < 0.6 mg/dL (0-1.6)
[2023-10-26 16:50] LABS: Creatinine Urine Random 82.28 mg/dL
== END ==
PROVIDERS: PCP Nurse Practitioner; Referring Provider Nurse Practitioner; Visit Provider Nurse Practitioner
DX: E78.5 Hyperlipidemia, unspecified (principal); I10 Essential (primary) hypertension; R73.01 Impaired fasting glucose; E87.6 Hypokalemia; T50.905A Adverse effect of unspecified drugs, medicaments and biological substances, initial encounter; Z79.899 Other long term (current) drug therapy
CPT/HCPCS: 36415; 80053; 80061; 82043; 82570; 84439; 84443; 84481

== ENCOUNTER → 2023-10-29 14:06 | Outpatient (CLI) | payer MEDICARE, OTHER, SELFPAY ==
[2023-10-29 13:56] VITALS: BMI 30.8
--- NOTE | 2023-10-29 14:08 | EKG_ITS ---
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
[2023-10-29 15:09] LABS: Hemoglobin A1C% w Est Avg Glu 5.5 % (4.0-6.0)
== END ==
PROVIDERS: PCP Nurse Practitioner; Referring Provider Nurse Practitioner; Visit Provider Nurse Practitioner
DX: R00.2 Palpitations (principal); R73.01 Impaired fasting glucose
CPT/HCPCS: 36415; 83036; 93005

== ENCOUNTER → 2023-11-20 07:43 | Outpatient (CLI) | payer MEDICARE, OTHER, SELFPAY ==
[2023-10-29 13:56] VITALS: BMI 30.8
--- NOTE | 2023-11-20 07:45 | DI.NM.S_ITS ---
PROCEDURE: NM EXERCISE TREADMILL NON NUC COMPARISON: None. INDICATIONS: SHORTNESS OF BREATH WITH EXERTION FINDINGS: The patient exercised for 7 minutes and 41 seconds reaching 89% of maximum predicted heart rate. 8.5METs, MARYAM -27%. Mild horizontal ST depressions in the anterolateral leads and moderate horizontal ST depressions in the inferior leads during recovery. Occasional PVCs present. No angina during the study. IMPRESSION: Abnormal treadmill ECG only stress test. Mild horizontal ST depressions in the anterolateral leads and moderate horizontal ST depressions in the inferior leads during recovery. No angina during the study. Good exercise tolerance (MARYAM -27%). Recommend treadmill stress test with nuclear imaging. Dictated by: Cleo Bustamante MD on 11/20/2023 at 17:12 Approved by: Cleo Bustamante MD on 11/20/2023 at 17:22
== END ==
PROVIDERS: PCP Nurse Practitioner; Referring Provider Nurse Practitioner; Visit Provider Nurse Practitioner
DX: R94.39 Abnormal result of other cardiovascular function study (principal); R06.02 Shortness of breath
CPT/HCPCS: 93017

== ENCOUNTER 2023-11-21 07:28 | Outpatient (CLI) | payer MEDICARE, OTHER, SELFPAY ==
[2018-10-16 08:14] VITALS: BMI 30.8
[2023-10-29 13:56] VITALS: BMI 30.8
[2023-11-21] VITALS (9 sets, daily range): BP systolic 99–187; BP diastolic 65–97; PULSE 33–63; RESP 11–18; TEMP 36.2; O2SAT 96–97
--- NOTE | 2023-11-21 08:00 | DI.RAD.S_ITS ---
PROCEDURE: PAIN L/S MED/LAT N RFA INDICATIONS: RIGHT L3, 4, 5 RFA COMPARISON: None. FINDINGS: Fluoroscopic spot filming was performed to verify placement of spinal needles at the right L3, L4, and L5 levels, as labeled on the films. Appropriate locations of the needle tips were confirmed by injection of iodinated contrast. IMPRESSION: Intraprocedural examination demonstrates appropriate needle positioning. Approved by: Mayco Stephen M.D. on 11/21/2023 at 21:06
[2023-11-21] MEDS: MIDAZOLAM 2 MG/2 ML VIAL 1 MG IV (08:02)
[2023-11-21] MEDS: BUPIVACAINE 0.5% (PF) 10 ML VIAL 5 ML INJ (08:13)
[2023-11-21] MEDS: LIDOCAINE 2% INJ SDV 5ML 10 ML INJ (08:14)
[2023-11-21] MEDS: DEXAMETHASONE 10 MG/ML VIAL INJ (08:14)
[2023-11-21] MEDS: LIDOCAINE 1% 20 ML INJ (08:16)
--- NOTE | 2023-11-21 08:52 | PC.NURSE ---
During right side of RFA at end of first cauterization heart rate started to drop into the mid 40's, Patient A&O able to make needs known. Denies dizziness, lightheaded, chest pain, SOB and dizziness. First burn completed and HR upper 40's-mid 50's. Second burn started and heart rate started to drop low 40's. Patient continues to denies any symptoms. Burning was completed and needles out. See vitals b/p and HR. Blood pressure started to drop, heart rate 33-36 bpm, IV fluids stared, Patient is alert and denies any dizziness, light headed, chest pain, or palpations. code button placed, stretcher in procedure room, ER staff arrived, patient was rolled from prone to back and placed trendelenberg NS IV fluids infusing, just before rolling over c/o feeling warm and was clammy to touch. report given to ER staff and taken to ER at 0835.
--- NOTE | 2023-11-21 10:23 | P.PCN_ITS ---
Date/Time/Diagnoses Date of procedure: 11/21/23 Time of procedure: 08:00 Procedure Notes Physician: João Charles Total Fluoroscopy time (seconds): 13 Total sedation minutes: 33 Procedure in detail & Post-procedure care: Right L3, 4, 5 Lumbar Medial Branch Radio Frequency Ablation Indications: Prem presents for treatment of lumbar spondylosis with low back pain. Preoperative diagnosis: Lumbar spondylosis Postoperative diagnosis: Same Focused Examination: Ax3 Mood and affect are normal Vital Signs: VSS ASA: 2 Consent: Following review of allergies and potential side effects/complications, including, but not necessarily limited to, infection, allergic reaction, local tissue breakdown, stroke, temporary or permanent nerve injury, paralysis, and possible , the patient indicated that they understood and agreed to proceed.? An informed consent document was signed by the patient, witnessed by a nurse and placed in the patient's chart.? Additionally, other treatment options including medications and physical therapy were reviewed with the patient. All questions were answered. Site was then marked. Position: Prone Monitoring: NIBP, Pulse oximetry, 3 lead EKG Needle used: 18 guage, 100 mm, 10 mm active tip Anesthesia: Local with IV sedation. After review of previous anesthetic history and IV conscious sedation, the patient was deemed safe to proceed with today's procedure with IV conscious sedation. IV sedation was accomplished with midazolam 1 mg administered by the RN after order by Dr. Charles. Sedation was titrated to patient comfort during the course of the procedure. Patient remained responsive to all verbal commands. Procedure: The patient was brought into the procedure room and positioned into the prone position. Skin was prepped with a Chloraprep solution, allowed to air dry, and then draped in sterile fashion.? The right L4-5 and L5-S1 facet joints were visually identified with fluoroscopy. Lidocaine 1% was used to anesthetize the skin over each target destination with a 25ga needle. An 18 ga, 100 mm RFA needle with a 10 mm active tip was advanced to the location of the medial branch at the junction of the superior articular process and the transverse process at L4,5 and the base of the SAP of the sacrum using intermittent fluoroscopy in the oblique view with caudal tilt. AP and lateral radiographs were taken to confirm proper needle placement. No paresthesias were noted. The stylet was removed and the radiofrequency probe was inserted through the cannula. Each level was individually tested.? Motor stimulation up to 2V elicited multifidus twitching in the lumbar spine. There was no motor stimulation in the lower extremities. After negative aspiration, 1ml of 2% lidocaine was injected at each of the levels and radiofrequency denervation carried out using 80 degrees Celsius for 90 seconds. The needles were then rotated 90 degrees and a second ablation was performed at 80 degrees Celsius for 90 seconds. After ablation, a mixture of 10 mg dexamethasone with 0.5% bupivacaine 5 mL was injected in equal amounts among the sites (1 mL per site). The needles were subsequently removed. At the end of the 2nd ablation cycle on the right side, the patient's heart rate became bradycardic into the 30s. His blood pressure also decreased to the 90s systolic. Rapid response was called for further evaluation. He was transferred to the emergency department in stable condition. We did not perform the left- sided RFA as expected. This procedure is expected to denervate the right L4-5 and L5-S1 facet joints. Post Procedure: Patient was taken to the ED and monitored. The patient was provided a Pain Log to continue to record the patient's response to the procedure. Detailed post procedure instructions were provided. Patient was asked to call in the event of worsening pain, fever, weakness, numbness or bladder or bowel incontinence. Complications: Bradycardia and hypotension
== END 2023-11-21 08:35 | disposition home or self-care (01) ==
LOC: RAD 07:28
PROVIDERS: PCP Nurse Practitioner; Referring Provider Anesthesiology; Visit Provider Anesthesiology
DX: M47.816 Spondylosis without myelopathy or radiculopathy, lumbar region (principal)
CPT/HCPCS: 64635; 64636; 99152; 99153; J1100; J2250

== ENCOUNTER 2023-11-21 08:40 | Emergency (ER) | payer MEDICARE, OTHER, SELFPAY ==
[2023-10-29 13:56] VITALS: BMI 30.8
[2023-11-21] VITALS (16 sets, daily range): BP systolic 146–174; BP diastolic 72–101; PULSE 42–63; RESP 10–27; O2SAT 94–97; BMI 31.5
--- NOTE | 2023-11-21 08:42 | EKG_ITS ---
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
--- NOTE | 2023-11-21 08:43 | ED_ITS ---
HPI - Arrhythmia/Palpitations General Chief Complaint: Medical Clearance Stated Complaint: Bradycardia Time Seen by Provider: 11/21/23 08:42 Source: patient, RN notes reviewed, old records reviewed and other (Dr. Charles and staff) Mode of arrival: other (came from IR on [facility]) Limitations: no limitations History of Present Illness HPI narrative: This is a 78-year-old male history of hypertension, dyslipidemia, chronic back pain, bradycardia who presents with complaint of low heart rate patient was having a procedure with PMR for his lower back. He did take an oxycodone at approximately 7:00 a.m. and had dose of Versed. Heart rate was noted to be in the 50s to 60s at the initiation of his care. He was face down in was longterm through the procedure/injection were noted his heart rate was decreasing and down into the 30s persistently. Patient also decrease his blood pressure from 180 systolic beginning was 100 systolic. Patient denies any symptoms. He was transitioned to a [facility] on his back, transported to the emergency department where he denies any symptoms. Patient's heart rate improved into the 50s. He states his normal baseline is about 58-60. He does note he is in the process of having an ischemic workup in his supposed to have a stress test tomorrow as well as an EKG. Patient denies any dizziness or lightheadedness, denies any diaphoresis. Denies any chest pain or pressure, no shortness of breath, no nausea or vomiting, no issues with bowel movements or urination. No new swelling of extremities. He notes he did take his home medications this morning which include verapamil and chlorthalidone. Patient does not have any known cardiac disease no prior cardiac interventions. He has prior abdominal surgeries for hernia, prostatectomy. No tobacco use, does drink alcohol most days of the week typically 1 glass, no recreational drugs. Kori oleary as his primary care physician. Related Data Previous Rx's Medication Instructions Recorded clotrimazole-betamethasone 1 1 applic topical BID PRN rash #45 05/15/16 %-0.05 % topical cream grams atorvastatin 20 mg tablet 20 mg PO QPM #90 tabs 11/21/22 verapamil 120 mg tablet,extended See Rx Instructions .Route 09/03/23 release .COMPLEX #90 tabs potassium chloride 10 mEq 20 meq (2 x 10 mEq) PO DAILY for 09/04/23 tablet,extended release potassium supplement #180 tabs diclofenac sodium 1 % topical gel 2 g topical QID #100 grams 09/18/23 (Arthritis Pain (diclofenac)) chlorthalidone 25 mg tablet See Rx Instructions .Route 11/12/23 .COMPLEX #90 tabs Allergies Allergy/AdvReac Type Severity Reaction Status Date / Time hydrochlorothiazide Allergy Severe ANGIOEDEMA Verified 10/29/23 13:00 (W/ LISINOPRIL/HCT) lisinopril Allergy Severe ANGIOEDEMA Verified 10/29/23 13:00 adhesive tape AdvReac Rash Verified 10/29/23 13:00 Review of Systems Review of Systems ROS Unobtainable: All systems reviewed & are unremarkable except as noted in HPI and below Patient History Medical History Family history of early CAD Lumbar degenerative disc disease Lumbar facet arthropathy Lumbar spondylosis Low back pain Headache Elevated fasting glucose Drug-induced hypokalemia Fractured lateral malleolus Right ankle pain Right foot pain Abnormal fasting glucose Muscle spasm Toe pain, left [place] of toe History of headache Sinus drainage Constipation Ulcer GERD (gastroesophageal reflux disease) Irregular heartbeat Incisional hernia Cough Inguinal hernia (~07/2014) Arthritis Fractures Hyperlipemia Hypertension Prostate cancer History of malignant neoplasm of prostate (04/08/15) Surgical History Hx of toe surgery (2022) Hx of hernia repair (2017) Hx of prostatectomy Hx of knee surgery Hx of hernia repair (07/2014) Status post radical cystoprostatectomy Family History Father Hypertension, essential Sister Age: 80 Cerebrovascular accident (CVA), unspecified mechanism Hypertension, essential Mother Cancer Social History household members: spouse Smoking Status: Never smoker second hand exposure: No alcohol intake: current substance use type: does not use Smoking Status: Never smoker Substance Use Type: does not use Exam Narrative Exam Narrative: GENERAL: Alert and oriented x three, male in mild distress. HEENT: Head normocephalic, atraumatic, EOMI, pupils reactive, face symmetric, moist mucous membranes NECK: Supple, full range of motion CARDIOVASCULAR: Bradycardic but regular rate and rhythm without murmurs, rubs or gallops. No JVD. No edema her extremities. RESPIRATORY: Breath sounds equal bilaterally, no wheezes rales or rhonchi. ABDOMEN: Soft, nontender. Normoactive bowel sounds all 4 quadrants. No guarding or rebound, rigidity, no mass : No CVA tenderness EXTREMITIES: Normal range of motion, no clubbing or edema. Neurovascularly intact NEUROLOGICAL: Cranial nerves II through XII grossly intact. Moving all extremities SKIN: Warm, dry, no petechiae, no rashes or lesions. Initial Vital Signs Initial Vital Signs: Vital Signs Pulse Rate 54 L 11/21/23 08:42 Respiratory Rate 16 11/21/23 08:42 Blood Pressure 149/83 H 11/21/23 08:42 Pulse Oximetry 97 11/21/23 08:42 Oxygen Delivery Method Room Air 11/21/23 08:42 Course Orders Ordered: ED Orders 11/21/23 10:40 Trop I [Troponin I] Stat 11/21/23 10:41 EKG-12 Lead Routine Discontinued Medications Sodium Chloride (Normal Saline 0.9%) 1,000 mls @ 150 mls/hr IV CONT LOLI Last Admin: 11/21/23 08:51 Dose: 150 mls/hr Documented By: RAÚL Calcium Gluconate 4.65 meq/ (Sodium Chloride) 60 mls @ 180 mls/hr IV NOW ONE Stop: 11/21/23 09:50 Last Infusion: 11/21/23 10:19 Dose: Infused Documented By: Admin: 11/21/23 09:52 Dose: 180 mls/hr Documented By: THADDEUS Potassium Chloride (Potassium Chloride 20 Meq Tab) 40 meq PO NOW ONE Stop: 11/21/23 09:32 Last Admin: 11/21/23 09:51 Dose: 40 meq Documented By: THADDEUS Vital Signs Vital signs: Vital Signs - 8 hr 11/21/23 10:16 11/21/23 10:16 11/21/23 10:30 Pulse Rate 63 56 L Respiratory Rate 19 14 Blood Pressure 166/101 H Pulse Oximetry 96 96 11/21/23 10:31 11/21/23 10:31 11/21/23 10:46 Pulse Rate 56 L Respiratory Rate 14 Blood Pressure 171/77 H 157/72 H Pulse Oximetry 95 11/21/23 10:46 11/21/23 11:00 11/21/23 11:00 Pulse Rate 57 L 53 L Respiratory Rate 14 13 Blood Pressure 149/76 H Pulse Oximetry 94 95 11/21/23 11:16 11/21/23 11:16 11/21/23 11:30 Pulse Rate 54 L Respiratory Rate 12 Blood Pressure 146/89 H 163/99 H Pulse Oximetry 95 11/21/23 11:30 Pulse Rate 62 Respiratory Rate 19 Blood Pressure Pulse Oximetry 96 MDM - Arrhythmia/Palpitations Lab Data 11/21/23 08:40 11/21/23 08:40 Labs: Lab Results 11/21/23 11/21/23 11/21/23 Range/Units 08:40 09:10 10:40 WBC 5.3 (4.5-11.0) X10^3/uL RBC 4.21 L (4.5-5.9) X10^6/uL Hgb 13.8 (13.5-17.5) g/dL Hct 40.0 L (41-53) % MCV 95.1 (80-100) fL MCH 32.7 (26-34) PG MCHC 34.4 (30-36) % RDW 13.7 (11.6-14.8) % Plt Count 249 (150-400) X10^3/uL Neut % (Auto) 49.6 L (50-75) % Lymph % (Auto) 29.2 (25-40) % Jessamine % (Auto) 11.0 (3-14) % Eos % (Auto) 9.1 H (2-4) % Baso % (Auto) 1.1 (0-2) % Neut # (Auto) 2600 (6009-5981) /uL Lymph # (Auto) 1600 (1396-7179) /uL Jessamine # (Auto) 600 (0-900) /uL Eos # (Auto) 500 H (0-450) /uL Baso # (Auto) 100 (0-100) /uL Sodium 137 (137-145) mmol/L Potassium 3.1 L (3.4-5.1) mmol/L Chloride 106 (98-107) mmol/L Carbon Dioxide 28 (22-32) mmol/L BUN 16 (9-20) mg/dL Creatinine 0.87 (0.66-1.25) mg/dL Estimated GFR > 60 (>60) mL/min BUN/Creatinine Ratio 18.4 (6-22) Glucose 110 (80-110) mg/dL Calcium 7.8 L (8.4-10.2) mg/dL Total Bilirubin 1.0 (0.2-1.3) mg/dL AST 26 (17-59) IU/L ALT 23 (<50) IU/L Alkaline Phosphatase 40 (38-126) U/L Total Creatine Kinase 155 (55-170) U/L Troponin I 0.016 0.018 0.017 (0.01-0.034) ng/mL Total Protein 5.7 L (6.3-8.2) g/dL Albumin 3.2 L (3.5-5.0) g/dL Globulin 2.5 (1.7-4.1) g/dL Albumin/Globulin Ratio 1.3 (1.0-2.8) Lipase 83 (23-300) U/L Imaging Data Chest x-ray: Radiologist's Impresson: [place] [address] XRay Report Signed Patient: Prem Hercules MR#: [id number] : 1945 Acct:[id number] Age/Sex: 78 / M Date of Service: 11/21/23 Loc: ED Accession Number: [id number] Procedure: XR chest 1V Ordering Provider: Estephanie Valdivia D.O. PROCEDURE: XR CHEST 1V INDICATIONS: chest pain TECHNIQUE: One view of the chest was acquired. COMPARISON: None. FINDINGS: Surgical changes and devices: None. Lungs and pleura: No dense consolidation or pleural effusion. Right hemidiaphragm eventration. A small linear opacity right lung base, probably atelectasis or scarring. Mediastinum: Size is at the upper limit normal. Bones and chest wall: Degenerative changes. IMPRESSION: Limited single view portable radiograph. No dense consolidation or pleural effusion. Probable atelectasis or scar at the right lung base. Right hemidiaphragm eventration. Dictated by: Leonel Carrillo M.D. on 11/21/2023 at 9:02 Approved by: Leonel Carrillo M.D. on 11/21/2023 at 9:03 ECG Data Attestation: I personally reviewed and interpreted this ECG as follows: Prior ECG tracings: available for review Interpretation: Sinus bradycardia rate of 46 QRS of 92 QTC 397. Patient has prior from 10/29/2023 which appears similar with no acute ST changes. Repeat EKG shows sinus bradycardia premature atrial complexes rate of 53 DE 202 QRS of 100 QTC of 409, ST elevation. Patient's EKG does not show any acute ST changes from 1st to 2nd. MDM Narrative Medical decision making narrative: 78-year-old having an lower lumbar procedure with PMR with known history of bradycardia who became quite bradycardic down into the 30s, hypotensive although he denies symptoms. Patient was face down during this his procedure has been in that position for at least 15 minutes if not more. Does take a calcium channel pasquale but no beta blockers. Patient did have an exercise stress test yesterday which recommended that he had treadmill stress with nuclear imaging, he was scheduled for an echo tomorrow. He denies any chest pain or pressure during his episode or recently. Suspect there maybe a vagal component with patient being face down, glucose was 107 bedside. Labs white count of 5.3 hemoglobin of 13.8, platelets of 249. Sodium 137, potassium of 3.1 chloride 106 CO2 of 28 BUN of 16 creatinine of 0.87, glucose of 110, calcium of 7.8, bilirubin is 1 AST ALT are normal, alk-phos normal lipase normal range. Troponin is 0.016, repeat troponin is negative 0.017 EKG shows sinus bradycardia rate 40s. Repeat EKG shows no acute changes. CXR probable atelectasis or scar at the right lung base, right hemidiaphragm eventration. Patient's heart rate had improved to the 50s with a systolic blood pressure in the 140s after arrival to the ED. Patient continues to feel improved. Spoke with Dr. Bustamante as patient's exercise stress test recommends new med stress test. He asked that we contact his primary care to make sure this gets ordered but feels appropriate for discharge home. Patient has never had chest pain or other cardiac equivalents. He has not echo set up tomorrow as well as calcium channel scoring. Discharge Plan Departure Patient Disposition: Home Clinical Impression: Bradycardia Activity Restrictions/Additional Instructions: Follow-up with Kori oleary to make sure your new med stress test gets ordered. I do have a call out to her to follow this up. Continue your home medications as prescribed. Your electrolytes were mildly off including your potassium and calcium these were replaced today. Continue to take your regular supplements touch base with your physician they may recheck your labs in the next week. Please return for new chest pain, shortness of breath, lightheadedness or passing out, new swelling of extremities, persistent vomiting or other new or concerning changes. Prescriptions: No Action atorvastatin 20 mg tablet 20 mg PO QPM Qty: 90 3RF verapamil 120 mg tablet extended release See Rx Instructions .ROUTE .COMPLEX Qty: 90 0RF Dose Instruction: TAKE 1 TABLET BY MOUTH ONCE DAILY Rx Instructions: TAKE 1 TABLET BY MOUTH ONCE DAILY potassium chloride 10 mEq tablet extended release 20 meq PO DAILY Qty: 180 0RF Rx Instructions: Labs due prior to next refill. diclofenac sodium [Arthritis Pain (diclofenac)] 1 % gel 2 g topical QID Qty: 100 0RF Rx Instructions: apply to single elbow, wrist or hand; for hand includes palm/fingers/back of hand chlorthalidone 25 mg tablet See Rx Instructions .ROUTE .COMPLEX Qty: 90 3RF Dose Instruction: TAKE 1 TABLET BY MOUTH DAILY Rx Instructions: TAKE 1 TABLET BY MOUTH DAILY clotrimazole-betamethasone 1-0.05 % cream 1 applic topical BID PRN (Reason: rash) Qty: 45 1RF Referrals: Kori Oleary ARNP [Primary Care Provider] - Stand Alone Forms: Patient Portal/API
[2023-11-21] MEDS: SODIUM CHLORIDE 0.9% 1,000 ML 150 ML IV (08:51)
[2023-11-21 08:54] LABS: Add Manual Diff / Slide Review NO; Basophils Absolute Auto 100 /uL (0-100); Basophils Percent Auto 1.1 % (0-2); Eosinophils Absolute Auto 500 /uL (0-450); Eosinophils Percent Auto 9.1 % (2-4); Hemoglobin 13.8 g/dL (13.5-17.5); Lymphocytes Absolute Auto 1600 /uL (1100-4500); Lymphocytes Percent Auto 29.2 % (25-40); Mean Corpuscular HGB Conc 34.4 % (30-36); Mean Corpuscular Hemoglobin 32.7 PG (26-34); Mean Corpuscular Volume 95.1 fL (80-100); Monocytes Absolute Auto 600 /uL (0-900); Neutrophils Absolute Auto 2600 /uL (1500-7000); Neutrophils Percent Auto 49.6 % (50-75); Platelet Count 249 X10^3/uL (150-400); Red Blood Cell Count 4.21 X10^6/uL (4.5-5.9); Red Cell Distribution Width 13.7 % (11.6-14.8); White Blood Cell Count 5.3 X10^3/uL (4.5-11.0)
[2023-11-21 09:06] LABS: Alanine Aminotransferase 23 IU/L (<50); Albumin 3.2 g/dL (3.5-5.0); Albumin Globulin Ratio 1.3 (1.0-2.8); Alkaline Phosphatase 40 U/L (38-126); Aspartate Aminotransferase 26 IU/L (17-59); BUN Creatinine Ratio 18.4 (6-22); Blood Urea Nitrogen 16 mg/dL (9-20); Calcium 7.8 mg/dL (8.4-10.2); Carbon Dioxide 28 mmol/L (22-32); Chloride 106 mmol/L (98-107); Creatine Kinase 155 U/L (55-170); Estimated Glomerular Filt Rate > 60 mL/min (>60); Globulin 2.5 g/dL (1.7-4.1); Glucose 110 mg/dL (80-110); HEMOLYSIS 24 (0-50); Lipase 83 U/L (23-300); Potassium 3.1 mmol/L (3.4-5.1); Sodium 137 mmol/L (137-145); Total Protein 5.7 g/dL (6.3-8.2)
[2023-11-21 09:17] LABS: Troponin I 0.016 ng/mL (0.01-0.034)
[2023-11-21] MEDS: POTASSIUM CHLORIDE 20 MEQ TAB 40 MEQ PO (09:51)
[2023-11-21] MEDS: CALCIUM GLUCONATE 4.65 MEQ in SODIUM CHLORIDE 0.9% 50 ML 180 MEQ IV (09:52)
[2023-11-21 09:57] LABS: Troponin I 0.018 ng/mL (0.01-0.034)
--- NOTE | 2023-11-21 10:41 | EKG_ITS ---
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
[2023-11-21 11:11] LABS: Troponin I 0.017 ng/mL (0.01-0.034)
--- NOTE | 2023-11-21 11:43 | PC.NURSE ---
patient in the room complains of throat dryness causing an irritating feeling. MD consulted, cold water gargle was offered. patient to try that with suction at bedside.
--- NOTE | 2023-11-21 11:47 | PC.NURSE ---
Patient states he is feeling better and is ready to go home.
== END 2023-11-21 12:50 | disposition home or self-care (01) ==
PROVIDERS: Emergency Provider Emergency Medicine; PCP Nurse Practitioner
DX: R00.1 Bradycardia, unspecified (principal); R07.9 Chest pain, unspecified; R79.89 Other specified abnormal findings of blood chemistry; Z79.899 Other long term (current) drug therapy
CPT/HCPCS: 36415; 64635; 64636; 71045; 80053; 82550; 83690; 84484; 85025; 93005; 93010; 96360; 96361; 99152; 99153; 99284; J0612; J1100; J2250

== ENCOUNTER → 2023-11-22 06:45 | Outpatient (CLI) | payer MEDICARE, OTHER, SELFPAY ==
[2023-10-29 13:56] VITALS: BMI 30.8
--- NOTE | 2023-11-22 06:46 | DI.ECHO.S_ITS ---
[facility]---------+ [facility] : : [address] : : [place] : : [id number] : : Phone: [phone] Echocardiogram Report + + :Name: BRISA LIGHT Study Date: 11/22/2023 Height: 70 in : :Hospital ReadingLocation: Weight: 220 lb : : Gender: Male BSA: 2.2 m2 : :: 1945 Age: 78 yrs BP: 155/95 mmHg: :Reason For Study: SHORTNESS OF BREATH : :Ordering Physician: LIONEL, : :CONNOR Performed By: Angel Patrick : :Referring: CONNOR FLOWERS : + + Interpretation Summary The ejection fraction is estimated to be 50-55%. There is mild aortic stenosis. The aortic valve mean gradient is 15.4 mmHg. There is mild aortic regurgitation. Procedure: A two-dimensional transthoracic echocardiogram with color flow and Doppler was performed. The study quality was technically adequate. There is no prior echocardiogram noted for this patient. The patient was in sinus rhythm with heart rates between 60-74 bpm during the exam. Left Ventricle: The left ventricle is normal in size. Left ventricular wall thickness is mildly increased. The ejection fraction is estimated to be 50- 55%. Left ventricular wall motion is normal. Right Ventricle: The right ventricle is mildly dilated. The right ventricular systolic function is normal. Atria: The left atrial size is normal. Right atrial size is normal. The interatrial septum grossly appears intact with no obvious evidence for an atrial septal defect. Mitral Valve: The mitral valve is normal. There is no mitral valve stenosis. There is trace mitral regurgitation. Aortic Valve: The aortic valve is trileaflet. There is mild aortic valve sclerosis. There is mild aortic stenosis. The peak aortic velocity is 2.46 m/sec. The aortic valve mean gradient is 15.4 mmHg. There is mild aortic regurgitation. Tricuspid Valve: The tricuspid valve is normal. There is no tricuspid stenosis. There is trace tricuspid regurgitation. The right ventricular systolic pressure is estimated to be at least 23.8 mmHg based on an estimated right atrial pressure of 3 mm Hg. Pulmonic Valve: The pulmonic valve is not well visualized. There is no pulmonic valvular stenosis. There is no pulmonic valvular regurgitation. Great Vessels: The aortic root is normal size. The dimensions of the ascending aorta are normal. The IVC is of normal diameter and collapses greater than 50% with a sniff. This suggests a low right atrial pressure of 3 mm Hg. Pericardium/ Pleura There is no pericardial effusion. There is no pleural effusion. MMode/2D Measurements & Calculations LVIDd: 4.0 cm LVOT diam: 2.4 cm LVIDs: 3.0 cm Ao root diam: 3.7 cm FS: 26.1 % asc Aorta Diam: 3.8 cm IVSd: 1.1 cm Ao Arch Diam (Prox Trans): 2.5 cm LVPWd: 1.1 cm LV colindres. diameter/BSA (cm/m^2): 1.9 LV sys. diameter/BSA (cm/m^2): 1.4 LA A2 area: 19.6 cm2 RA long axis: 5.5 cm LA A4 area: 17.0 cm2 RA area: 18.5 cm2 LA length (vol): 5.3 cm RA vol: 52.6 ml LA vol: 53.6 ml RA : 24.2 ml/m2 LA vol index: 24.6 ml/m2 IVC diam: 1.6 cm RVD1 (basal): 4.1 cm RVD2 (mid): 3.4 cm TAPSE: 2.1 cm Doppler Measurements & Calculations Ao V2 max: 246.6 cm/sec LVOT Max Elliot: 88.5 cm/sec Ao V2 mean: 187.3 cm/sec LV V1 max P.1 mmHg Ao max P.4 mmHg LV V1 VTI: 22.0 cm Ao mean P.4 mmHg NAVEED(I,D): 1.6 cm2 Ao V2 VTI: 64.1 cm NAVEED(V,D): 1.6 cm2 sev ratio: 0.34 NAVEED indexed to BSA (cm^2/m^2): 0.72 MV E max elliot: 66.9 cm/sec TR max elliot: 228.2 cm/sec MV A max elliot: 88.2 cm/sec TR max P.8 mmHg MV E/A: 0.76 PA V2 max: 154.8 cm/sec Med Peak E' Elliot: 6.7 cm/sec PA V2 mean: 108.1 cm/sec E/E' med: 9.9 PA mean P.3 mmHg Lat Peak E' Elliot: 9.8 cm/sec PA pr(Accel): 36.2 mmHg E/E' lat: 6.8 E/e' average: 8.4 MV dec time: 0.20 sec SV(LVOT): 100.2 ml Reading Physician:05:21 PM
== END ==
LOC: ECHO 06:46
PROVIDERS: PCP Nurse Practitioner; Referring Provider Nurse Practitioner; Visit Provider Nurse Practitioner
DX: I35.2 Nonrheumatic aortic (valve) stenosis with insufficiency (principal); R06.02 Shortness of breath; R00.2 Palpitations; R53.83 Other fatigue
CPT/HCPCS: 93306

== ENCOUNTER → 2023-11-23 07:04 | Outpatient (CLI) | payer MEDICARE, OTHER, SELFPAY ==
[2023-10-29 13:56] VITALS: BMI 30.8
--- NOTE | 2023-12-07 18:59 | DI.NM.S_ITS ---
DATE OF SERVICE: 11/23/2023 EXERCISE PERFUSION STUDY INDICATION: Exertional shortness of breath with hypertension and hyperlipidemia. RADIOPHARMACEUTICAL: 25.4 millicurie technetium-99m Myoview IV was injected at stress and 26 millicurie technetium-99m Myoview IV was injected at rest. CARDIAC STRESS: The patient underwent exercise perfusion study under the supervision of an attending staff. The patient walked on Julito protocol for 9 minutes and achieved maximum heart rate of 144 which was 100% of target heart rate. Peak blood pressure 200/100 mmHg. Baseline rhythm was sinus. During peak exercise and early recovery, there is about [address] depression in inferior leads, some nonspecific ST-T changes in anterolateral leads. It persisted beyond 3 minutes in recovery. In recovery, patient had some PACs and short run of atrial tachycardia without any obvious atrial fibrillation. The patient had shortness of breath during exercise. Achieved 10.1 METS of workload. MARYAM -47%. 100% of target heart rate. RAW DATA: There is increased subdiaphragmatic activity. GATED STUDY: Stress LV ejection fraction 64% without any obvious wall motion abnormalities. Resting end-diastolic volume 114 mL. TID ratio 1.08, which is within normal limits. Lung/heart ratio 0.31, which is within normal limits. MYOCARDIAL PERFUSION SCAN: Stress supine, resting supine, and stress prone images were compared to each other. There appears to be predominantly fixed moderate size, moderate to severely decreased perfusion involving base to mid inferior wall extending into the base to mid inferolateral wall without any significant reversible ischemia. CONCLUSION: This is an abnormal myocardial perfusion study consistent with moderate size infarction of base to mid inferior wall extending into the base to mid inferolateral wall, sparing, distal inferior wall and distal inferolateral wall consistent with prior infarction. No significant ischemia. Good exercise tolerance. Achieved 10.1 METS of workload. Walked on treadmill for 9 minutes. Had shortness of breath. Ischemic EKG changes as well as intermittent PACs and short burst of atrial tachycardia without any AFib. Correlate clinically. His shortness of breath could be angina equivalent. Consider Cardiology evaluation and left heart catheterization. DiomedesSalvadoren - CHILO/gloria/GUTIERREZ doc#: [id number]/job#: [id number] dd: 12/07/2023 17:37:00 dt: 12/07/2023 18:50:00 DICTATING MD/COPIES TO: Ar Navarro MD; Kori Oleary NP COPIES MNE: ROSARIO;
== END ==
LOC: NUCM 07:05
PROVIDERS: PCP Nurse Practitioner; Referring Provider Nurse Practitioner; Visit Provider Nurse Practitioner
DX: I49.3 Ventricular premature depolarization (principal); R94.39 Abnormal result of other cardiovascular function study; R06.02 Shortness of breath; R94.31 Abnormal electrocardiogram [ECG] [EKG]; I10 Essential (primary) hypertension; E78.5 Hyperlipidemia, unspecified
CPT/HCPCS: 78452; 93017; A9502

== ENCOUNTER 2024-04-22 07:30 | Outpatient (CLI) | payer MEDICARE, OTHER, SELFPAY ==
[2023-10-29 13:56] VITALS: BMI 30.8
[2024-04-22] VITALS (12 sets, daily range): BP systolic 020–133; BP diastolic 66–81; PULSE 15–55; RESP 12–20; TEMP 36.1; O2SAT 95–99
--- NOTE | 2024-04-22 07:31 | DI.RAD.S_ITS ---
PROCEDURE: PAIN L/S MED/LAT N RFA INDICATIONS: Left L3, L4 and L5 MB RFA COMPARISON: [facility], , PAIN L/S MED/LAT N RFA, 11/21/2023, 8:09. FINDINGS/IMPRESSION: Fluoroscopic spot filming was performed to verify placement of spinal needles at the left L3-L5 level(s), as labeled on the films. Appropriate location(s) of the needle tip(s) was confirmed by injection of iodinated contrast. Dictated by: Leonel Carrillo M.D. on 04/22/2024 at 14:53 Approved by: Leonel Carrillo M.D. on 04/22/2024 at 14:53
[2024-04-22] MEDS: MIDAZOLAM 2 MG/2 ML VIAL 1 MG IV (08:21)
[2024-04-22] MEDS: BUPIVACAINE 0.5% (PF) 10 ML VIAL 5 ML INJ (08:30)
[2024-04-22] MEDS: LIDOCAINE 1% 20 ML 5 ML INJ (08:30)
--- NOTE | 2024-04-22 08:54 | P.PCN_ITS ---
Date/Time/Diagnoses Date of procedure: 04/22/24 Time of procedure: 08:54 Pre-procedure diagnosis: 1. RECALCITRANT FACET ARTHROPATHY Post-procedure diagnosis: same Procedure Notes Procedure: 1. LEFT L3, L4 AND L5 MEDIAL BRANCH RADIOFREQUENCY NEUROTOMY Indications: Bird is referred by Dr. Nassar for treatment of facet arthropathy. Physician: Ivan Moss Total Fluoroscopy time (seconds): 12 Total sedation minutes: 27 Complications: none Procedure in detail & Post-procedure care: DESCRIPTION OF PROCEDURE Left L2, L3 and L4 medial branch radio-frequency neurotomy The patient is well known to this clinic having undergone previous facet injections with good but temporary relief. The patient has experienced appropriate, concordant relief with previous facet and median branch blocks but the patient's pain has been recalcitrant to further conservative measures. Therefore, based upon the patient's relief and persistent symptoms, the patient is considered an appropriate candidate for facet rhizotomy. All of the patient's questions regarding the risks versus benefits of the procedure, including, but not limited to, bleeding, infection, temporary as well as lasting nerve injury, paralysis, stroke, and , as well treatment alternatives were answered to satisfaction. After obtaining informed consent, denial of pertinent drug allergies, as well as being made aware of the potential risks of bleeding, infection, spinal cord trauma, paralysis, temporary and permanent nerve damage, seizure, stroke, and possible , the patient was brought to the fluoroscopy suite and positioned prone on the fluoroscopy table. The lumbar region was prepped with Betadine and covered with a fenestrated drape in the usual sterile fashion. Appropriate monitors applied including pulse oximeter, pulse, and blood pressure for regular monitoring throughout the procedure. After review of previous anaesthesic history and IV conscious sedation the patient was deemed safe to proceed with today?s procedure with IV conscious sedation as ASA class II designation. Safety time-out was performed to confirm patient ID, procedure to be performed and site of procedure. IV sedation was accomplished with a combination of 1mg of Versed administered by the RN after DO order, titrated to patient comfort during the course of the procedure while the patient remained responsive to all verbal commands. After local infiltration using 1% lidocaine, under fluoroscopic guidance, a 10- cm RF insulated needle with a 10-mm active tip was positioned parallel to the junction of the left the superior articulating process where the L3 medial branch resides. Needle placement was confirmed with sensory stimulation at 50 Hz, with motor stimulation of .5v on the left which produced local stimulation without radicular component. The stimulation was then increased to 2v with, once again, only local multifidus stimulation without radicular component. This was then followed by two discreet lesions performed at 80 degrees Celsius for 90 seconds each. The needle was then removed and the identical procedure was performed along the length of the left L4 medial branch with motor stimulation at .7v on the left. The identical procedure was once again performed along the length of the left L5 and medial branch with motor stimulation of .5v on the right. The patient tolerated the procedure well without signs or symptoms of complications prior to transfer to the recovery area continued monitoring without incident. The patient was then transferred to the recovery area where they were observed for an appropriate period of time after the injection. The patient reported a VAS score of 8 prior to the procedure and a post-procedure VAS of 1. POST OP INSTRUCTIONS The patient was provided a Pain Log to continue to record the patient's response to the target-specific procedure prior to the patient's follow-up visit with the referring physician. Additionally, specific post-injection care instructions and a contact number to our office were provided if concerns arise regarding possible complications associated with the procedure are suspected.
== END 2024-04-22 09:20 | disposition home or self-care (01) ==
PROVIDERS: PCP Family Medicine; Referring Provider Physical Medicine & Rehabilitation; Visit Provider Physical Medicine & Rehabilitation
DX: M47.816 Spondylosis without myelopathy or radiculopathy, lumbar region (principal)
CPT/HCPCS: 64635; 64636; 99152; 99153; J2250

== ENCOUNTER → 2024-04-29 08:07 | Outpatient (CLI) | payer MEDICARE, OTHER, SELFPAY ==
[2023-10-29 13:56] VITALS: BMI 30.8
[2024-04-29 08:36] LABS: Add Manual Diff / Slide Review NO; Basophils Absolute Auto 100 /uL (0-100); Basophils Percent Auto 1.9 % (0-2); Eosinophils Absolute Auto 300 /uL (0-450); Eosinophils Percent Auto 6.6 % (2-4); Hematocrit 44.4 % (41-53); Hemoglobin 15.1 g/dL (13.5-17.5); Lymphocytes Absolute Auto 1500 /uL (1100-4500); Mean Corpuscular HGB Conc 33.9 % (30-36); Mean Corpuscular Hemoglobin 31.7 PG (26-34); Mean Corpuscular Volume 93.4 fL (80-100); Monocytes Absolute Auto 500 /uL (0-900); Monocytes Percent Auto 10.6 % (3-14); Neutrophils Absolute Auto 2400 /uL (1500-7000); Neutrophils Percent Auto 49.9 % (50-75); Platelet Count 320 X10^3/uL (150-400); Red Blood Cell Count 4.75 X10^6/uL (4.5-5.9); Red Cell Distribution Width 13.6 % (11.6-14.8); White Blood Cell Count 4.7 X10^3/uL (4.5-11.0)
[2024-04-29 09:06] LABS: Alanine Aminotransferase 86 IU/L (<50); Albumin Globulin Ratio 1.5 (1.0-2.8); Alkaline Phosphatase 55 U/L (38-126); Aspartate Aminotransferase 63 IU/L (17-59); BUN Creatinine Ratio 16.1 (6-22); Blood Urea Nitrogen 15 mg/dL (9-20); Calcium 9.7 mg/dL (8.4-10.2); Carbon Dioxide 34 mmol/L (22-32); Chloride 99 mmol/L (98-107); Cholesterol 154 mg/dL (140-199); Estimated Glomerular Filt Rate > 60 mL/min (>60); Globulin 2.6 g/dL (1.7-4.1); Glucose 116 mg/dL (80-110); HDL Cholesterol 49 mg/dL (40-60); HEMOLYSIS < 15 (0-50); LDL Cholesterol Calculated 80 mg/dL (<100); Potassium 3.4 mmol/L (3.4-5.1); Sodium 136 mmol/L (137-145); Total Protein 6.6 g/dL (6.3-8.2); Triglycerides 125 mg/dL (35-150)
== END ==
LOC: LAB 08:07
PROVIDERS: PCP Family Medicine; Referring Provider Family Medicine; Visit Provider Family Medicine
DX: E78.5 Hyperlipidemia, unspecified (principal); I25.10 Atherosclerotic heart disease of native coronary artery without angina pectoris; I10 Essential (primary) hypertension; R73.01 Impaired fasting glucose; Z98.890 Other specified postprocedural states
CPT/HCPCS: 36415; 80053; 80061; 85025

== ENCOUNTER 2024-05-15 08:30 | Outpatient (RCR) | payer MEDICARE, OTHER, SELFPAY ==
[2023-10-29 13:56] VITALS: BMI 30.8
== END 2024-05-15 10:30 ==
LOC: CAR 08:30
PROVIDERS: PCP Family Medicine; Referring Provider Nurse Practitioner; Visit Provider Internal Medicine Cardiovascular Disease
DX: I25.2 Old myocardial infarction (principal)
CPT/HCPCS: 93798

== ENCOUNTER → 2024-09-20 08:31 | Outpatient (CLI) | payer MEDICARE, OTHER, SELFPAY ==
[2023-10-29 13:56] VITALS: BMI 30.8
[2024-09-20 09:32] LABS: Add Manual Diff / Slide Review NO; Basophils Absolute Auto 100 /uL (0-100); Basophils Percent Auto 1.2 % (0-2); Eosinophils Absolute Auto 300 /uL (0-450); Eosinophils Percent Auto 6.6 % (2-4); Hemoglobin 14.3 g/dL (13.5-17.5); Lymphocytes Absolute Auto 1000 /uL (1100-4500); Lymphocytes Percent Auto 18.4 % (25-40); Mean Corpuscular HGB Conc 34.8 % (30-36); Mean Corpuscular Hemoglobin 31.8 PG (26-34); Mean Corpuscular Volume 91.3 fL (80-100); Monocytes Absolute Auto 800 /uL (0-900); Monocytes Percent Auto 15.2 % (3-14); Neutrophils Absolute Auto 3000 /uL (1500-7000); Neutrophils Percent Auto 58.6 % (50-75); Platelet Count 276 X10^3/uL (150-400); Red Blood Cell Count 4.49 X10^6/uL (4.5-5.9); Red Cell Distribution Width 13.9 % (11.6-14.8); White Blood Cell Count 5.2 X10^3/uL (4.5-11.0)
[2024-09-20 09:41] LABS: Hemoglobin A1C% w Est Avg Glu 5.6 % (4.0-6.0)
[2024-09-20 10:20] LABS: Alanine Aminotransferase 29 IU/L (<50); Albumin 3.7 g/dL (3.5-5.0); Albumin Globulin Ratio 1.5 (1.0-2.8); Alkaline Phosphatase 71 U/L (38-126); Aspartate Aminotransferase 29 IU/L (17-59); BUN Creatinine Ratio 20.7 (6-22); Bilirubin Total 1.4 mg/dL (0.2-1.3); Blood Urea Nitrogen 17 mg/dL (9-20); Calcium 9.1 mg/dL (8.4-10.2); Carbon Dioxide 32 mmol/L (22-32); Chloride 100 mmol/L (98-107); Cholesterol 162 mg/dL (140-199); Estimated Glomerular Filt Rate > 60 mL/min (>60); Globulin 2.5 g/dL (1.7-4.1); Glucose 108 mg/dL (70-99); HDL Cholesterol 39 mg/dL (40-60); HEMOLYSIS < 15 (0-50); LDL Cholesterol Calculated 99 mg/dL (<100); Potassium 3.2 mmol/L (3.4-5.1); Sodium 137 mmol/L (137-145); Total Protein 6.2 g/dL (6.3-8.2); Triglycerides 120 mg/dL (35-150)
== END ==
PROVIDERS: PCP Family Medicine; Referring Provider Family Medicine; Visit Provider Family Medicine
DX: I25.10 Atherosclerotic heart disease of native coronary artery without angina pectoris (principal); R73.01 Impaired fasting glucose; Z82.49 Family history of ischemic heart disease and other diseases of the circulatory system; I10 Essential (primary) hypertension
CPT/HCPCS: 36415; 80053; 80061; 83036; 85025

== ENCOUNTER → 2025-01-27 07:25 | Outpatient (CLI) | payer MEDICARE, OTHER, SELFPAY ==
[2023-10-29 13:56] VITALS: BMI 30.8
[2025-01-27 08:05] LABS: Alanine Aminotransferase 38 IU/L (<50); Albumin 3.8 g/dL (3.5-5.0); Albumin Globulin Ratio 1.5 (1.0-2.8); Alkaline Phosphatase 58 U/L (38-126); Blood Urea Nitrogen 12 mg/dL (9-20); Calcium 9.0 mg/dL (8.4-10.2); Carbon Dioxide 31 mmol/L (22-32); Chloride 101 mmol/L (98-107); Cholesterol 105 mg/dL (140-199); Estimated Glomerular Filt Rate > 60 mL/min (>60); Globulin 2.5 g/dL (1.7-4.1); Glucose 118 mg/dL (70-99); HDL Cholesterol 56 mg/dL (40-60); HEMOLYSIS < 15 (0-50); Potassium 3.2 mmol/L (3.4-5.1); Sodium 138 mmol/L (137-145); Total Protein 6.3 g/dL (6.3-8.2); Triglycerides 164 mg/dL (35-150)
== END ==
PROVIDERS: PCP Family Medicine; Referring Provider Internal Medicine Cardiovascular Disease; Visit Provider Internal Medicine Cardiovascular Disease
DX: E78.2 Mixed hyperlipidemia (principal); I25.10 Atherosclerotic heart disease of native coronary artery without angina pectoris
CPT/HCPCS: 36415; 80053; 80061